=== PATIENT | female | born 1955 | race Caucasian/White ===

== ENCOUNTER 2022-05-20 13:17 | Outpatient (RCR) | payer MEDICARE, BC, SELFPAY ==
[2022-05-20 13:33] LABS: Chloride* 107 mmol/L (96-114)
[2022-05-20 13:34] LABS: Albumin* 4.1 g/dL (3.3-5.0); Potassium* 4.2 mmol/L (3.6-5.1); Sodium* 139 mmol/L (135-149)
[2022-05-20 13:37] LABS: Alanine Aminotransferase* 19 U/L (4-35); Alkaline Phosphatase* 62 U/L (40-150); Aspartate Amino Transferase* 25 U/L (12-35); Blood Urea Nitrogen* 19 mg/dL (7-30); Carbon Dioxide* 32 mmol/L (20-32); Creatinine* 0.9 mg/dL (0.5-1.5); Estimated Glomerular Filt Rate 70.51; Glucose* 111 mg/dL (60-115); Total Protein* 6.6 g/dL (6.0-8.3)
[2022-05-20 13:38] LABS: Calcium* 9.1 mg/dL (8.4-10.6)
[2022-05-20 13:42] LABS: Basophils Percent Auto 1.8 % (0.0-3.0); Eosinophils Percent Auto 3.5 % (0.0-7.0); Hematocrit 38.5 % (33.0-51.0); Hemoglobin* 12.7 gm/dL (12.0-16.0); Immature Granulocytes Abs Auto 0.01 K/uL (0.00-0.30); Lymphocytes Percent Auto 37.4 % (20-44); Mean Corpuscular HGB Conc 33 gm/dL (32-36); Mean Corpuscular Hemoglobin 31 pg (26-34); Mean Corpuscular Volume 94 fL (80-100); Monocytes Percent Auto 17.4 % (0.0-11.0); Neutrophils Percent Auto 39.6 % (42.0-72.0); Platelet Count* 194 K/uL (140-440); RDW Coefficient of Variation % 14.3 % (11.5-15.5)
[2022-05-20 13:46] LABS: Slide Review Reflex No
== END 2022-06-09 23:59 | disposition home or self-care (01) ==
LOC: CCIC 13:17
PROVIDERS: PCP Family Medicine; Visit Provider Internal Medicine Hematology & Oncology
DX: C90.00 Multiple myeloma not having achieved remission (principal)
CPT/HCPCS: 36415; 80053; 85025

== ENCOUNTER 2022-11-18 10:30 | Outpatient (RCR) | payer MEDICARE, BC, SELFPAY ==
[2022-06-17 11:44] LABS: Basophils Percent Auto 0.9 % (0.0-3.0); Eosinophils Percent Auto 1.2 % (0.0-7.0); Hematocrit 39.6 % (33.0-51.0); Hemoglobin* 13.5 gm/dL (12.0-16.0); Immature Granulocytes Abs Auto 0.01 K/uL (0.00-0.30); Lymphocytes Percent Auto 26.8 % (20-44); Mean Corpuscular HGB Conc 34 gm/dL (32-36); Mean Corpuscular Hemoglobin 31 pg (26-34); Mean Corpuscular Volume 92 fL (80-100); Monocytes Percent Auto 20.9 % (0.0-11.0); Platelet Count* 159 K/uL (140-440); White Blood Count* 4.26 K/uL (4.50-11.00)
[2022-06-17 11:56] LABS: Albumin* 4.2 g/dL (3.3-5.0); Chloride* 103 mmol/L (96-114); Potassium* 4.2 mmol/L (3.6-5.1); Sodium* 136 mmol/L (135-149)
[2022-06-17 11:58] LABS: Creatinine* 0.8 mg/dL (0.5-1.5); Estimated Glomerular Filt Rate 81 ml/min
[2022-06-17 11:59] LABS: Alanine Aminotransferase* 59 U/L (4-35); Alkaline Phosphatase* 83 U/L (40-150); Aspartate Amino Transferase* 57 U/L (12-35); Bilirubin Total* 1.5 mg/dL (0.1-1.5); Blood Urea Nitrogen* 15 mg/dL (7-30); Carbon Dioxide* 23 mmol/L (20-32); Glucose* 116 mg/dL (60-115); Slide Review Reflex No; Total Protein* 7.6 g/dL (6.0-8.3)
--- NOTE | 2022-06-18 09:54 | ONC.NURNOTE ---
Lab results were reviewed with Dr Mcnulty yesterday-noting AST/ALT elevation Revlimid to be held this week Vanessa reports upper respiratory symptoms and a fever 101.2 on Friday- treated with tylenol yesterday Afeb and no tylenol Vanessa, her and other family members with similar symptoms over the weekend have all been testing negative for COVID family members have recovered from illness, but Vanessa is still having upper respiratory symptoms and had a STRICKLAND this am which she took tylenol for this am Recommendations; continue to monitor for temp call for appt with Dr Rogers today if she has any fever 100.5 or higher holding revlimid this week plan was to recheck labs in one week- however Vanessa is scheduled to be out of town Friday-Friday- so lab recheck planned for Friday Vanessa understands that she can not come in for lab draw if she has had a temp within 24 hours Vanessa will call if she gets labs with Dr Rogers at [facility] prior to Friday
--- NOTE | 2022-06-18 10:20 | ONC.NURNOTE ---
Vanessa tested positive for COVID instructed to call Dr Rogers for possible treatment with PAxlovid appts here canceled and will be rescheduled for a later date
[2022-07-01 10:35] LABS: Eosinophils Percent Auto 3.1 % (0.0-7.0); Hematocrit 37.4 % (33.0-51.0); Hemoglobin* 12.7 gm/dL (12.0-16.0); Immature Granulocytes Abs Auto 0.01 K/uL (0.00-0.30); Lymphocytes Percent Auto 30.1 % (20-44); Mean Corpuscular HGB Conc 34 gm/dL (32-36); Mean Corpuscular Hemoglobin 32 pg (26-34); Mean Corpuscular Volume 93 fL (80-100); Monocytes Percent Auto 9.6 % (0.0-11.0); Platelet Count* 212 K/uL (140-440); RDW Coefficient of Variation % 14.3 % (11.5-15.5); Red Blood Count 4.02 m/uL (4.00-5.20); White Blood Count* 4.18 K/uL (4.50-11.00)
[2022-07-01 10:38] LABS: Slide Review Reflex No
[2022-07-01 10:47] LABS: Albumin* 3.9 g/dL (3.3-5.0); Chloride* 105 mmol/L (96-114)
[2022-07-01 10:48] LABS: Potassium* 4.3 mmol/L (3.6-5.1); Sodium* 137 mmol/L (135-149)
[2022-07-01 10:50] LABS: Alanine Aminotransferase* 18 U/L (4-35); Alkaline Phosphatase* 70 U/L (40-150); Aspartate Amino Transferase* 25 U/L (12-35); Bilirubin Total* 0.8 mg/dL (0.1-1.5); Blood Urea Nitrogen* 14 mg/dL (7-30); Carbon Dioxide* 27 mmol/L (20-32); Creatinine* 0.8 mg/dL (0.5-1.5); Estimated Glomerular Filt Rate 81 ml/min; Glucose* 94 mg/dL (60-115)
[2022-07-01 10:51] LABS: Calcium* 8.8 mg/dL (8.4-10.6)
--- NOTE | 2022-07-01 15:30 | ONC.NURNOTE ---
Addendum entered by Sol Quintero RN 07/01/22 15:35: Per Dr. Mcnulty recheck CMP in 2 weeks. Original Note: Dr. Mcnulty reviewed pt's labs from today. Okay to resume Revlimid, song writer called patient and patient verbalized understanding of plan of care.
--- NOTE | 2022-07-01 15:50 | ONC.NURNOTE ---
Labs shown to Dr. Mcnulty. pt called.
[2022-07-16 11:48] LABS: Albumin* 4.2 g/dL (3.3-5.0); Chloride* 105 mmol/L (96-114)
[2022-07-16 11:49] LABS: Potassium* 4.4 mmol/L (3.6-5.1); Sodium* 137 mmol/L (135-149)
[2022-07-16 11:51] LABS: Aspartate Amino Transferase* 25 U/L (12-35); Bilirubin Total* 1.4 mg/dL (0.1-1.5); Carbon Dioxide* 27 mmol/L (20-32); Creatinine* 0.7 mg/dL (0.5-1.5); Estimated Glomerular Filt Rate 95 ml/min; Total Protein* 6.9 g/dL (6.0-8.3)
[2022-07-16 11:52] LABS: Alanine Aminotransferase* 15 U/L (4-35); Alkaline Phosphatase* 67 U/L (40-150); Blood Urea Nitrogen* 13 mg/dL (7-30); Calcium* 8.5 mg/dL (8.4-10.6); Glucose* 87 mg/dL (60-115)
[2022-07-29 11:06] LABS: Basophils Percent Auto 1.9 % (0.0-3.0); Eosinophils Percent Auto 2.4 % (0.0-7.0); Hematocrit 36.8 % (33.0-51.0); Hemoglobin* 12.5 gm/dL (12.0-16.0); Immature Granulocytes Abs Auto 0.01 K/uL (0.00-0.30); Mean Corpuscular HGB Conc 34 gm/dL (32-36); Mean Corpuscular Hemoglobin 32 pg (26-34); Mean Corpuscular Volume 94 fL (80-100); Monocytes Percent Auto 14.3 % (0.0-11.0); Neutrophils Percent Auto 45.1 % (42.0-72.0); Platelet Count* 192 K/uL (140-440); Red Blood Count 3.92 m/uL (4.00-5.20); White Blood Count* 3.78 K/uL (4.50-11.00)
[2022-07-29 11:08] LABS: Slide Review Reflex No
[2022-07-29 11:26] LABS: Albumin* 4.2 g/dL (3.3-5.0); Chloride* 107 mmol/L (96-114)
[2022-07-29 11:27] LABS: Potassium* 4.5 mmol/L (3.6-5.1); Sodium* 137 mmol/L (135-149)
[2022-07-29 11:29] LABS: Alanine Aminotransferase* 18 U/L (4-35); Alkaline Phosphatase* 63 U/L (40-150); Aspartate Amino Transferase* 26 U/L (12-35); Bilirubin Total* 1.6 mg/dL (0.1-1.5); Blood Urea Nitrogen* 13 mg/dL (7-30); Carbon Dioxide* 25 mmol/L (20-32); Creatinine* 0.7 mg/dL (0.5-1.5); Estimated Glomerular Filt Rate 95 ml/min; Glucose* 90 mg/dL (60-115)
[2022-07-29 11:30] LABS: Calcium* 8.8 mg/dL (8.4-10.6)
[2022-08-26 13:48] LABS: Basophils Percent Auto 1.1 % (0.0-3.0); Eosinophils Percent Auto 2.7 % (0.0-7.0); Hematocrit 38.6 % (33.0-51.0); Hemoglobin* 13.1 gm/dL (12.0-16.0); Lymphocytes Percent Auto 38.2 % (20-44); Mean Corpuscular HGB Conc 34 gm/dL (32-36); Mean Corpuscular Hemoglobin 32 pg (26-34); Mean Corpuscular Volume 94 fL (80-100); Monocytes Percent Auto 14.1 % (0.0-11.0); Neutrophils Percent Auto 43.9 % (42.0-72.0); Platelet Count* 189 K/uL (140-440); RDW Coefficient of Variation % 14.1 % (11.5-15.5); Red Blood Count 4.13 m/uL (4.00-5.20)
[2022-08-26 13:52] LABS: Slide Review Reflex No
[2022-08-26 14:04] LABS: Albumin* 4.5 g/dL (3.3-5.0); Chloride* 103 mmol/L (96-114); Sodium* 136 mmol/L (135-149)
[2022-08-26 14:05] LABS: Potassium* 4.7 mmol/L (3.6-5.1)
[2022-08-26 14:06] LABS: Creatinine* 0.8 mg/dL (0.5-1.5); Estimated Glomerular Filt Rate 81 ml/min
[2022-08-26 14:07] LABS: Alanine Aminotransferase* 19 U/L (4-35); Alkaline Phosphatase* 63 U/L (40-150); Aspartate Amino Transferase* 27 U/L (12-35); Bilirubin Total* 1.5 mg/dL (0.1-1.5); Blood Urea Nitrogen* 18 mg/dL (7-30); Carbon Dioxide* 28 mmol/L (20-32); Glucose* 98 mg/dL (60-115); Total Protein* 7.6 g/dL (6.0-8.3)
[2022-09-23 11:23] LABS: Basophils Percent Auto 1.2 % (0.0-3.0); Eosinophils Percent Auto 3.5 % (0.0-7.0); Hematocrit 36.1 % (33.0-51.0); Hemoglobin* 12.2 gm/dL (12.0-16.0); Immature Granulocytes Pct Auto 0.6 %; Lymphocytes Percent Auto 24.6 % (20-44); Mean Corpuscular HGB Conc 34 gm/dL (32-36); Mean Corpuscular Hemoglobin 31 pg (26-34); Mean Corpuscular Volume 93 fL (80-100); Monocytes Percent Auto 13.3 % (0.0-11.0); Neutrophils Percent Auto 56.8 % (42.0-72.0); Platelet Count* 196 K/uL (140-440); RDW Coefficient of Variation % 14.3 % (11.5-15.5); Red Blood Count 3.89 m/uL (4.00-5.20); White Blood Count* 3.46 K/uL (4.50-11.00)
[2022-09-23 11:36] LABS: Albumin* 4.1 g/dL (3.3-5.0); Chloride* 107 mmol/L (96-114); Sodium* 138 mmol/L (135-149)
[2022-09-23 11:37] LABS: Potassium* 3.9 mmol/L (3.6-5.1)
[2022-09-23 11:39] LABS: Alanine Aminotransferase* 22 U/L (4-35); Alkaline Phosphatase* 60 U/L (40-150); Aspartate Amino Transferase* 26 U/L (12-35); Bilirubin Total* 1.6 mg/dL (0.1-1.5); Blood Urea Nitrogen* 13 mg/dL (7-30); Carbon Dioxide* 25 mmol/L (20-32); Creatinine* 0.7 mg/dL (0.5-1.5); Estimated Glomerular Filt Rate 95 ml/min; Glucose* 112 mg/dL (60-115); Total Protein* 6.9 g/dL (6.0-8.3)
[2022-09-23 11:40] LABS: Calcium* 8.6 mg/dL (8.4-10.6)
[2022-09-23 11:59] LABS: Slide Review Reflex No
--- NOTE | 2022-09-23 13:03 | ONC.NURNOTE ---
Lab results reviewed and called to Vanessa with in parameters to proceed with Revlimid myeloma labs pending RTC next week with provider
[2022-09-25 17:55] LABS: Free Urinary Kappa Excret/Day 13.48 mg/d; Free Urine LAmbda Light Chains <0.74 mg/L (0.00-3.79); Hours Collected 24 hr; Total Volume 2750 mL
[2022-09-25 19:16] LABS: Albumin 3.69 g/dL (3.75-5.01); Alpha 1 Globulin 0.31 g/dL (0.19-0.46); Alpha 2 Globulin 0.67 g/dL (0.48-1.05); Immunofixation IFE Done; Immunoglobulin A 148 mg/dL (68-408); Immunoglobulin G 1000 mg/dL (768-1632); Immunoglobulin M 41 mg/dL (35-263); Kappa Qnt Free Light Chains 19.18 mg/L (3.30-19.40); Kappa/Lambda Light Chain Ratio 0.87 (0.26-1.65); Total Protein, Serum 6.4 g/dL (6.3-8.2)
[2022-10-21 11:16] LABS: Basophils Percent Auto 1.4 % (0.0-3.0); Eosinophils Percent Auto 3.9 % (0.0-7.0); Hematocrit 37.6 % (33.0-51.0); Hemoglobin* 12.7 gm/dL (12.0-16.0); Immature Granulocytes Pct Auto 0.3 %; Lymphocytes Percent Auto 35.8 % (20-44); Mean Corpuscular HGB Conc 34 gm/dL (32-36); Mean Corpuscular Hemoglobin 31 pg (26-34); Mean Corpuscular Volume 91 fL (80-100); Monocytes Percent Auto 13.3 % (0.0-11.0); Neutrophils Percent Auto 45.3 % (42.0-72.0); Platelet Count* 191 K/uL (140-440); RDW Coefficient of Variation % 14.4 % (11.5-15.5); Red Blood Count 4.12 m/uL (4.00-5.20)
[2022-10-21 11:27] LABS: Slide Review Reflex No
[2022-10-21 11:28] LABS: Albumin* 4.3 g/dL (3.3-5.0); Chloride* 110 mmol/L (96-114)
[2022-10-21 11:29] LABS: Potassium* 4.2 mmol/L (3.6-5.1); Sodium* 139 mmol/L (135-149)
[2022-10-21 11:31] LABS: Aspartate Amino Transferase* 29 U/L (12-35); Bilirubin Total* 1.9 mg/dL (0.1-1.5); Carbon Dioxide* 25 mmol/L (20-32); Creatinine* 0.8 mg/dL (0.5-1.5); Estimated Glomerular Filt Rate 81 ml/min
[2022-10-21 11:32] LABS: Alanine Aminotransferase* 25 U/L (4-35); Alkaline Phosphatase* 58 U/L (40-150); Blood Urea Nitrogen* 14 mg/dL (7-30); Glucose* 96 mg/dL (60-115)
--- NOTE | 2022-10-21 16:24 | ONC.NURNOTE ---
called pt with lab results. ok to take Revlimid. per Brooke WINSLOW/Dr. Mcnulty.
[2022-10-24 04:58] LABS: Immunofixation IFE Done; Immunoglobulin A 157 mg/dL (68-408); Immunoglobulin G 1034 mg/dL (768-1632); Immunoglobulin M 39 mg/dL (35-263); Kappa Qnt Free Light Chains 23.61 mg/L (3.30-19.40); Kappa/Lambda Light Chain Ratio 1.14 (0.26-1.65); Lambda Qnt Free Light Chains 20.65 mg/L (5.71-26.30); Total Protein, Serum 6.5 g/dL (6.3-8.2)
[2022-11-18 11:26] LABS: Albumin* 4.1 g/dL (3.3-5.0); Chloride* 107 mmol/L (96-114); Potassium* 4.4 mmol/L (3.6-5.1); Sodium* 138 mmol/L (135-149)
[2022-11-18 11:28] LABS: Creatinine* 0.8 mg/dL (0.5-1.5); Estimated Glomerular Filt Rate 81 ml/min
[2022-11-18 11:29] LABS: Alanine Aminotransferase* 21 U/L (4-35); Alkaline Phosphatase* 57 U/L (40-150); Aspartate Amino Transferase* 26 U/L (12-35); Bilirubin Total* 1.7 mg/dL (0.1-1.5); Blood Urea Nitrogen* 17 mg/dL (7-30); Carbon Dioxide* 27 mmol/L (20-32); Glucose* 100 mg/dL (60-115); Total Protein* 6.9 g/dL (6.0-8.3)
[2022-11-18 11:30] LABS: Calcium* 8.9 mg/dL (8.4-10.6)
[2022-11-18 14:20] LABS: Basophils Percent Auto 1.6 % (0.0-3.0); Eosinophils Percent Auto 3.6 % (0.0-7.0); Hematocrit 38.6 % (33.0-51.0); Hemoglobin* 13.1 gm/dL (12.0-16.0); Immature Granulocytes Pct Auto 0.5 %; Lymphocytes Percent Auto 36.3 % (20-44); Mean Corpuscular HGB Conc 34 gm/dL (32-36); Mean Corpuscular Hemoglobin 31 pg (26-34); Mean Corpuscular Volume 91 fL (80-100); Monocytes Percent Auto 14.2 % (0.0-11.0); Neutrophils Percent Auto 43.8 % (42.0-72.0); Platelet Count* 204 K/uL (140-440); RDW Coefficient of Variation % 14.9 % (11.5-15.5); Red Blood Count 4.26 m/uL (4.00-5.20); White Blood Count* 3.66 K/uL (4.50-11.00)
[2022-11-18 14:25] LABS: Slide Review Reflex No
--- NOTE | 2022-11-18 15:05 | ONC.NURNOTE ---
Labs reviewed and called to Vanessa as stable and with in her norm She plans to start Revlimid Next appts reviewed
== END 2022-12-14 23:59 | disposition home or self-care (01) ==
LOC: CCIC 10:30
PROVIDERS: Clinical Nurse Specialist; Internal Medicine Medical Oncology; PCP Family Medicine; Referring Provider Family Medicine; Visit Provider Internal Medicine Hematology & Oncology
DX: C90.01 Multiple myeloma in remission (principal); G62.0 Drug-induced polyneuropathy; T45.1X5A Adverse effect of antineoplastic and immunosuppressive drugs, initial encounter
CPT/HCPCS: 36415; 80053; 82784; 83520; 84155; 84156; 84165; 85025; 86334; 86335; 99212; 99213; 99214

== ENCOUNTER 2023-06-04 12:30 | Outpatient (RCR) | payer MEDICARE, BC, SELFPAY ==
[2022-12-16 11:05] LABS: Basophils Percent Auto 1.9 % (0.0-3.0); Hematocrit 39.1 % (33.0-51.0); Hemoglobin* 13.2 gm/dL (12.0-16.0); Lymphocytes Percent Auto 35.7 % (20-44); Mean Corpuscular HGB Conc 34 gm/dL (32-36); Mean Corpuscular Hemoglobin 31 pg (26-34); Mean Corpuscular Volume 91 fL (80-100); Monocytes Percent Auto 16.1 % (0.0-11.0); Neutrophils Percent Auto 43.3 % (42.0-72.0); Platelet Count* 184 K/uL (140-440); Red Blood Count 4.29 m/uL (4.00-5.20); White Blood Count* 3.67 K/uL (4.50-11.00)
[2022-12-16 11:06] LABS: Slide Review Reflex No
[2022-12-16 11:32] LABS: Albumin* 4.1 g/dL (3.3-5.0); Chloride* 110 mmol/L (96-114); Potassium* 4.7 mmol/L (3.6-5.1); Sodium* 141 mmol/L (135-149)
[2022-12-16 11:34] LABS: Aspartate Amino Transferase* 25 U/L (12-35); Carbon Dioxide* 25 mmol/L (20-32); Creatinine* 0.8 mg/dL (0.5-1.5); Estimated Glomerular Filt Rate 81 ml/min
[2022-12-16 11:35] LABS: Alanine Aminotransferase* 20 U/L (4-35); Alkaline Phosphatase* 54 U/L (40-150); Blood Urea Nitrogen* 14 mg/dL (7-30); Calcium* 8.8 mg/dL (8.4-10.6); Glucose* 95 mg/dL (60-115); Total Protein* 7.1 g/dL (6.0-8.3)
--- NOTE | 2022-12-17 09:27 | ONC.NURNOTE ---
Patient called and given lab results and also told that PATIENT OMBUDSPERSON-Rolanda reviewed them and bili up to 2.0 so instructed to push fluids and avoid alcoholic beverages. Recheck 01/13 already set up
[2023-01-14 11:27] LABS: Basophils Percent Auto 1.2 % (0.0-3.0); Eosinophils Percent Auto 3.6 % (0.0-7.0); Hemoglobin* 13.5 gm/dL (12.0-16.0); Immature Granulocytes Pct Auto 0.2 %; Lymphocytes Percent Auto 31.9 % (20-44); Mean Corpuscular HGB Conc 34 gm/dL (32-36); Mean Corpuscular Hemoglobin 31 pg (26-34); Mean Corpuscular Volume 91 fL (80-100); Neutrophils Percent Auto 47.1 % (42.0-72.0); Platelet Count* 189 K/uL (140-440)
[2023-01-14 11:30] LABS: Slide Review Reflex No
[2023-01-14 11:44] LABS: Albumin* 4.2 g/dL (3.3-5.0); Chloride* 108 mmol/L (96-114)
[2023-01-14 11:45] LABS: Potassium* 4.7 mmol/L (3.6-5.1); Sodium* 138 mmol/L (135-149)
[2023-01-14 11:47] LABS: Carbon Dioxide* 27 mmol/L (20-32); Creatinine* 0.8 mg/dL (0.5-1.5); Estimated Glomerular Filt Rate 81 ml/min
[2023-01-14 11:48] LABS: Alanine Aminotransferase* 20 U/L (4-35); Alkaline Phosphatase* 58 U/L (40-150); Aspartate Amino Transferase* 25 U/L (12-35); Bilirubin Total* 1.9 mg/dL (0.1-1.5); Blood Urea Nitrogen* 13 mg/dL (7-30); Glucose* 84 mg/dL (60-115); Total Protein* 7.4 g/dL (6.0-8.3)
[2023-01-16 18:52] LABS: Free Urinary Kappa Excret/Day 21.32 mg/d; Free Urinary Lambda Excr/Day 2.63 mg/d; Free Urine Kappa Light Chains 9.17 mg/L (0.00-32.90); Free Urine LAmbda Light Chains 1.13 mg/L (0.00-3.79); Hours Collected 24 hr; Total Volume 2325 mL
[2023-01-17 13:58] LABS: Albumin 4.09 g/dL (3.75-5.01); Alpha 1 Globulin 0.29 g/dL (0.19-0.46); Alpha 2 Globulin 0.62 g/dL (0.48-1.05); Immunofixation IFE Done; Immunoglobulin A 170 mg/dL (68-408); Immunoglobulin G 1006 mg/dL (768-1632); Immunoglobulin M 46 mg/dL (35-263); Kappa Qnt Free Light Chains 23.89 mg/L (3.30-19.40); Kappa/Lambda Light Chain Ratio 1.07 (0.26-1.65); Lambda Qnt Free Light Chains 22.32 mg/L (5.71-26.30); Total Protein, Serum 6.8 g/dL (6.3-8.2)
--- NOTE | 2023-02-06 11:08 | ONC.NURNOTE ---
patient held start date of last Revlimid cycle X 2 days due to cold/ upper respiratory symptoms with no fever, and covid neg since taking revlimid this past 3 weeks she has had a persisitant cough, afeb, no sore throat, but grandkids have had ear infections and strept reports improving cough, but next lab moved to 02/12/23 and next start of Rev may need to be delayed if symptoms persist next week
[2023-02-12 11:01] LABS: Basophils Percent Auto 1.4 % (0.0-3.0); Eosinophils Percent Auto 4.1 % (0.0-7.0); Hematocrit 38.8 % (33.0-51.0); Hemoglobin* 13.1 gm/dL (12.0-16.0); Immature Granulocytes Pct Auto 0.2 %; Mean Corpuscular HGB Conc 34 gm/dL (32-36); Mean Corpuscular Hemoglobin 31 pg (26-34); Mean Corpuscular Volume 91 fL (80-100); Monocytes Percent Auto 12.7 % (0.0-11.0); Neutrophils Percent Auto 49.6 % (42.0-72.0); Platelet Count* 198 K/uL (140-440); RDW Coefficient of Variation % 14.5 % (11.5-15.5); Red Blood Count 4.26 m/uL (4.00-5.20); White Blood Count* 4.16 K/uL (4.50-11.00)
[2023-02-12 11:06] LABS: Slide Review Reflex No
[2023-02-12 11:46] LABS: Albumin* 3.9 g/dL (3.3-5.0); Chloride* 109 mmol/L (96-114)
[2023-02-12 11:48] LABS: Bilirubin Total* 1.8 mg/dL (0.1-1.5); Creatinine* 0.8 mg/dL (0.5-1.5); Estimated Glomerular Filt Rate 81 ml/min
[2023-02-12 11:49] LABS: Alanine Aminotransferase* 19 U/L (4-35); Alkaline Phosphatase* 61 U/L (40-150); Aspartate Amino Transferase* 26 U/L (12-35); Blood Urea Nitrogen* 13 mg/dL (7-30); Calcium* 8.7 mg/dL (8.4-10.6); Carbon Dioxide* 26 mmol/L (20-32); Glucose* 98 mg/dL (60-115)
[2023-02-12 11:54] LABS: Sodium* 137 mmol/L (135-149)
[2023-02-12 11:55] LABS: Potassium* 4.2 mmol/L (3.6-5.1)
--- NOTE | 2023-02-12 13:27 | ONC.NURNOTE ---
Labs noted as with in patients normal called to Vanessa to start next cycle Revlimid
[2023-03-12 10:25] LABS: Eosinophils Percent Auto 4.3 % (0.0-7.0); Hematocrit 38.4 % (33.0-51.0); Hemoglobin* 12.9 gm/dL (12.0-16.0); Lymphocytes Percent Auto 39.9 % (20-44); Mean Corpuscular HGB Conc 34 gm/dL (32-36); Mean Corpuscular Hemoglobin 31 pg (26-34); Mean Corpuscular Volume 93 fL (80-100); Monocytes Percent Auto 14.4 % (0.0-11.0); Neutrophils Percent Auto 39.4 % (42.0-72.0); Platelet Count* 206 K/uL (140-440); RDW Coefficient of Variation % 14.3 % (11.5-15.5); Red Blood Count 4.15 m/uL (4.00-5.20); White Blood Count* 3.48 K/uL (4.50-11.00)
[2023-03-12 10:28] LABS: Slide Review Reflex No
[2023-03-12 10:41] LABS: Albumin* 4.2 g/dL (3.3-5.0); Chloride* 106 mmol/L (96-114); Potassium* 4.6 mmol/L (3.6-5.1); Sodium* 138 mmol/L (135-149)
[2023-03-12 10:43] LABS: Bilirubin Total* 1.4 mg/dL (0.1-1.5); Carbon Dioxide* 25 mmol/L (20-32); Creatinine* 0.8 mg/dL (0.5-1.5); Estimated Glomerular Filt Rate 81 ml/min
[2023-03-12 10:44] LABS: Alanine Aminotransferase* 21 U/L (4-35); Alkaline Phosphatase* 58 U/L (40-150); Aspartate Amino Transferase* 24 U/L (12-35); Blood Urea Nitrogen* 17 mg/dL (7-30); Calcium* 9.1 mg/dL (8.4-10.6); Glucose* 88 mg/dL (60-115); Total Protein* 7.2 g/dL (6.0-8.3)
[2023-04-09 11:26] LABS: Basophils Percent Auto 1.3 % (0.0-3.0); Eosinophils Percent Auto 2.8 % (0.0-7.0); Hematocrit 36.2 % (33.0-51.0); Hemoglobin* 12.3 gm/dL (12.0-16.0); Lymphocytes Percent Auto 41.6 % (20-44); Mean Corpuscular HGB Conc 34 gm/dL (32-36); Mean Corpuscular Hemoglobin 31 pg (26-34); Mean Corpuscular Volume 91 fL (80-100); Monocytes Percent Auto 13.6 % (0.0-11.0); Neutrophils Percent Auto 40.7 % (42.0-72.0); Platelet Count* 192 K/uL (140-440); RDW Coefficient of Variation % 14.5 % (11.5-15.5); Red Blood Count 3.98 m/uL (4.00-5.20); White Blood Count* 3.17 K/uL (4.50-11.00)
[2023-04-09 11:31] LABS: Slide Review Reflex No
[2023-04-09 11:48] LABS: Albumin* 4.1 g/dL (3.3-5.0); Chloride* 105 mmol/L (96-114)
[2023-04-09 11:49] LABS: Potassium* 4.2 mmol/L (3.6-5.1); Sodium* 138 mmol/L (135-149)
[2023-04-09 11:51] LABS: Alkaline Phosphatase* 59 U/L (40-150); Aspartate Amino Transferase* 27 U/L (12-35); Bilirubin Total* 1.5 mg/dL (0.1-1.5); Carbon Dioxide* 27 mmol/L (20-32); Creatinine* 0.7 mg/dL (0.5-1.5); Estimated Glomerular Filt Rate 95 ml/min; Total Protein* 6.8 g/dL (6.0-8.3)
[2023-04-09 11:52] LABS: Alanine Aminotransferase* 22 U/L (4-35); Blood Urea Nitrogen* 13 mg/dL (7-30); Calcium* 9.5 mg/dL (8.4-10.6); Glucose* 89 mg/dL (60-115)
[2023-04-11 19:17] LABS: Free Urinary Kappa Excret/Day 32.27 mg/d; Free Urinary Lambda Excr/Day 3.66 mg/d; Free Urine Kappa Light Chains 18.98 mg/L (0.00-32.90); Free Urine LAmbda Light Chains 2.15 mg/L (0.00-3.79); Hours Collected 24 hr; Total Volume 1700 mL
[2023-04-24 01:38] LABS: Albumin 4.03 g/dL (3.75-5.01); Alpha 1 Globulin 0.33 g/dL (0.19-0.46); Alpha 2 Globulin 0.63 g/dL (0.48-1.05); Immunofixation IFE Done; Immunoglobulin A 187 mg/dL (68-408); Immunoglobulin G 1037 mg/dL (768-1632); Immunoglobulin M 43 mg/dL (35-263); Kappa/Lambda Light Chain Ratio 1.29 (0.26-1.65); Lambda Qnt Free Light Chains 26.82 mg/L (5.71-26.30); Total Protein, Serum 6.8 g/dL (6.3-8.2)
--- NOTE | 2023-05-01 11:47 | ONC.NURNOTE ---
Myeloma labs reviewed by Dr Horan no changes warrented results called to Vanessa continue with current dose revlimid and follow up as planned for Jun with Dr Trinidad and repeat labs
[2023-05-06 09:32] LABS: Basophils Percent Auto 1.1 % (0.0-3.0); Hemoglobin* 13.1 gm/dL (12.0-16.0); Lymphocytes Percent Auto 37.6 % (20-44); Mean Corpuscular HGB Conc 34 gm/dL (32-36); Mean Corpuscular Hemoglobin 31 pg (26-34); Mean Corpuscular Volume 91 fL (80-100); Monocytes Percent Auto 13.1 % (0.0-11.0); Neutrophils Percent Auto 43.2 % (42.0-72.0); Platelet Count* 182 K/uL (140-440); RDW Coefficient of Variation % 14.8 % (11.5-15.5); White Blood Count* 2.82 K/uL (4.50-11.00)
[2023-05-06 09:40] LABS: Slide Review Reflex No
[2023-05-06 09:51] LABS: Albumin* 4.2 g/dL (3.3-5.0); Chloride* 104 mmol/L (96-114); Potassium* 4.3 mmol/L (3.6-5.1); Sodium* 137 mmol/L (135-149)
[2023-05-06 09:53] LABS: Creatinine* 0.8 mg/dL (0.5-1.5); Est. Creatinine Clearance* 45.16; Estimated Glomerular Filt Rate 81 ml/min
[2023-05-06 09:54] LABS: Alanine Aminotransferase* 18 U/L (4-35); Alkaline Phosphatase* 53 U/L (40-150); Aspartate Amino Transferase* 23 U/L (12-35); Blood Urea Nitrogen* 13 mg/dL (7-30); Carbon Dioxide* 27 mmol/L (20-32); Glucose* 82 mg/dL (60-115); Total Protein* 7.1 g/dL (6.0-8.3)
[2023-05-06 09:55] LABS: Calcium* 8.9 mg/dL (8.4-10.6)
--- NOTE | 2023-05-07 12:14 | ONC.NURNOTE ---
labs reviewed by ticket writer and Suzanne Sahu WINDOW REPAIRER/STATISTICAL PROGRAMMER ANALYST WBC/ANC noted lower then norm but with in parameters bili flucuation noted reviewed with Vanessa to start Revlimid today
[2023-06-04 12:30] LABS: Hematocrit 38.5 % (33.0-51.0); Lymphocytes Percent Auto 38.4 % (20-44); Mean Corpuscular HGB Conc 34 gm/dL (32-36); Mean Corpuscular Hemoglobin 31 pg (26-34); Mean Corpuscular Volume 91 fL (80-100); Monocytes Percent Auto 15.5 % (0.0-11.0); Neutrophils Percent Auto 40.7 % (42.0-72.0); Platelet Count* 189 K/uL (140-440); RDW Coefficient of Variation % 15.1 % (11.5-15.5); Red Blood Count 4.24 m/uL (4.00-5.20); White Blood Count* 3.49 K/uL (4.50-11.00)
[2023-06-04 12:31] LABS: Basophils Percent Auto 1.4 % (0.0-3.0)
[2023-06-04 12:34] LABS: Slide Review Reflex No
[2023-06-04 13:05] LABS: Chloride* 108 mmol/L (96-114); Potassium* 3.9 mmol/L (3.6-5.1); Sodium* 136 mmol/L (135-149)
[2023-06-04 13:07] LABS: Creatinine* 0.8 mg/dL (0.5-1.5); Est. Creatinine Clearance* 45.16; Estimated Glomerular Filt Rate 81 ml/min
[2023-06-04 13:08] LABS: Alanine Aminotransferase* 19 U/L (4-35); Alkaline Phosphatase* 57 U/L (40-150); Aspartate Amino Transferase* 27 U/L (12-35); Bilirubin Total* 1.6 mg/dL (0.1-1.5); Blood Urea Nitrogen* 14 mg/dL (7-30); Carbon Dioxide* 23 mmol/L (20-32); Glucose* 104 mg/dL (60-115); Total Protein* 7.1 g/dL (6.0-8.3)
[2023-06-04 13:09] LABS: Calcium* 8.8 mg/dL (8.4-10.6)
--- NOTE | 2023-06-06 10:40 | ONC.NURNOTE ---
Lab reviewed with Vanessa, Revlimid was started yesterday after Vanessa reviewed labs in the portal no concerns with dosing next lab will be done at [place] on 07/04/23- with plan to start the Revlimid on that day if the labs are within her parameters Follow up with Dr Trinidad around 07/09 next appts in [place] pending Dr Trinidad's follow up
== END 2023-06-14 23:59 | disposition home or self-care (01) ==
LOC: CCIC 12:30
PROVIDERS: Clinical Nurse Specialist; PCP Family Medicine; Referring Provider Family Medicine; Visit Provider Internal Medicine Hematology & Oncology
DX: C90.01 Multiple myeloma in remission (principal)
CPT/HCPCS: 36415; 80053; 82784; 83520; 84155; 84156; 84165; 85025; 86334; 86335; 99212; 99214

== ENCOUNTER 2024-01-22 10:30 | Outpatient (RCR) | payer MEDICARE, BC, SELFPAY ==
--- NOTE | 2023-07-25 12:29 | ONC.NURNOTE ---
Survey completed through [facility] specialty. Prescription faxed to [facility] specialty pharmacy.
[2023-07-31 11:33] LABS: Basophils Percent Auto 2.4 % (0.0-3.0); Eosinophils Percent Auto 3.8 % (0.0-7.0); Hematocrit 38.1 % (33.0-51.0); Hemoglobin* 12.9 gm/dL (12.0-16.0); Immature Granulocytes Pct Auto 0.3 %; Lymphocytes Percent Auto 38.5 % (20-44); Mean Corpuscular HGB Conc 34 gm/dL (32-36); Mean Corpuscular Hemoglobin 31 pg (26-34); Mean Corpuscular Volume 93 fL (80-100); Platelet Count* 215 K/uL (140-440); RDW Coefficient of Variation % 15.4 % (11.5-15.5); Red Blood Count 4.11 m/uL (4.00-5.20); White Blood Count* 2.86 K/uL (4.50-11.00)
[2023-07-31 11:49] LABS: Albumin* 4.2 g/dL (3.3-5.0); Chloride* 107 mmol/L (96-114)
[2023-07-31 11:50] LABS: Potassium* 4.3 mmol/L (3.6-5.1); Sodium* 139 mmol/L (135-149)
[2023-07-31 11:51] LABS: Slide Review Reflex No
[2023-07-31 11:52] LABS: Alkaline Phosphatase* 69 U/L (40-150); Anion Gap 6 mEq/L (7-15); Aspartate Amino Transferase* 27 U/L (12-35); Bilirubin Total* 1.4 mg/dL (0.1-1.5); Blood Urea Nitrogen* 10 mg/dL (7-30); Carbon Dioxide* 26 mmol/L (20-32); Creatinine* 0.8 mg/dL (0.5-1.5); Estimated Glomerular Filt Rate 81 ml/min; Total Protein* 7.4 g/dL (6.0-8.3)
[2023-07-31 11:53] LABS: Alanine Aminotransferase* 21 U/L (4-35); Calcium* 9.1 mg/dL (8.4-10.6); Glucose* 112 mg/dL (60-115)
[2023-08-28 11:04] LABS: Eosinophils Percent Auto 6.8 % (0.0-7.0); Hematocrit 38.5 % (33.0-51.0); Hemoglobin* 13.1 gm/dL (12.0-16.0); Immature Granulocytes Pct Auto 0.3 %; Lymphocytes Percent Auto 33.5 % (20-44); Mean Corpuscular HGB Conc 34 gm/dL (32-36); Mean Corpuscular Hemoglobin 32 pg (26-34); Mean Corpuscular Volume 93 fL (80-100); Monocytes Percent Auto 11.7 % (0.0-11.0); Neutrophils Percent Auto 46.7 % (42.0-72.0); Platelet Count* 202 K/uL (140-440); RDW Coefficient of Variation % 14.4 % (11.5-15.5); Red Blood Count 4.14 m/uL (4.00-5.20); White Blood Count* 3.85 K/uL (4.50-11.00)
[2023-08-28 11:15] LABS: Slide Review Reflex No
[2023-08-28 11:33] LABS: Albumin* 4.3 g/dL (3.3-5.0); Chloride* 103 mmol/L (96-114)
[2023-08-28 11:34] LABS: Sodium* 138 mmol/L (135-149)
[2023-08-28 11:36] LABS: Alkaline Phosphatase* 69 U/L (40-150); Anion Gap 11 mEq/L (7-15); Aspartate Amino Transferase* 42 U/L (12-35); Bilirubin Total* 1.9 mg/dL (0.1-1.5); Blood Urea Nitrogen* 13 mg/dL (7-30); Carbon Dioxide* 24 mmol/L (20-32); Creatinine* 0.8 mg/dL (0.5-1.5); Estimated Glomerular Filt Rate 81 ml/min; Total Protein* 7.5 g/dL (6.0-8.3)
[2023-08-28 11:37] LABS: Alanine Aminotransferase* 20 U/L (4-35); Calcium* 8.7 mg/dL (8.4-10.6); Glucose* 96 mg/dL (60-115)
[2023-09-23 10:53] LABS: Basophils Percent Auto 0.8 % (0.0-3.0); Hematocrit 35.9 % (33.0-51.0); Hemoglobin* 12.3 gm/dL (12.0-16.0); Immature Granulocytes Pct Auto 0.3 %; Lymphocytes Percent Auto 37.3 % (20-44); Mean Corpuscular HGB Conc 34 gm/dL (32-36); Mean Corpuscular Hemoglobin 31 pg (26-34); Mean Corpuscular Volume 91 fL (80-100); Monocytes Percent Auto 12.6 % (0.0-11.0); Platelet Count* 193 K/uL (140-440); RDW Coefficient of Variation % 14.2 % (11.5-15.5); Red Blood Count 3.94 m/uL (4.00-5.20); White Blood Count* 3.57 K/uL (4.50-11.00)
[2023-09-23 10:54] LABS: Slide Review Reflex No
[2023-09-23 11:09] LABS: Albumin* 3.9 g/dL (3.3-5.0); Chloride* 108 mmol/L (96-114); Potassium* 4.1 mmol/L (3.6-5.1); Sodium* 137 mmol/L (135-149)
[2023-09-23 11:12] LABS: Alanine Aminotransferase* 18 U/L (4-35); Alkaline Phosphatase* 66 U/L (40-150); Anion Gap 5 mEq/L (7-15); Aspartate Amino Transferase* 35 U/L (12-35); Bilirubin Total* 1.6 mg/dL (0.1-1.5); Blood Urea Nitrogen* 13 mg/dL (7-30); Carbon Dioxide* 24 mmol/L (20-32); Creatinine* 0.7 mg/dL (0.5-1.5); Estimated Glomerular Filt Rate 94 ml/min; Glucose* 104 mg/dL (60-115); Total Protein* 7.1 g/dL (6.0-8.3)
[2023-09-23 11:13] LABS: Calcium* 8.8 mg/dL (8.4-10.6)
--- NOTE | 2023-09-23 14:14 | ONC.NURNOTE ---
Lab results reviewed and tanya Mendez has follow up next week with Oncology
[2023-09-26 02:12] LABS: Free Urinary Lambda Excr/Day 2.31 mg/d; Free Urine LAmbda Light Chains 1.38 mg/L (0.00-3.79); Hours Collected 24 hr; Total Volume 1675 mL
[2023-09-26 18:18] LABS: Albumin 3.74 g/dL (3.75-5.01); Alpha 2 Globulin 0.61 g/dL (0.48-1.05); Immunofixation IFE Done; Immunoglobulin A 172 mg/dL (68-408); Immunoglobulin G 1006 mg/dL (768-1632); Immunoglobulin M 44 mg/dL (35-263); Kappa Qnt Free Light Chains 31.24 mg/L (3.30-19.40); Kappa/Lambda Light Chain Ratio 1.19 (0.26-1.65); Lambda Qnt Free Light Chains 26.18 mg/L (5.71-26.30); Total Protein, Serum 6.4 g/dL (6.3-8.2)
--- NOTE | 2023-10-23 09:51 | ONC.NURNOTE ---
Addendum entered by Sol Quintero RN 10/31/23 16:01: Labs reviewed by Suzanne Sahu APRN. Pt called and she is asymptomatic. Pt will restart revlimid on 11/02/23. Original Note: COVID positive on 10/20/23 started Paxlovid afeb and tested Neg today no lenolidomide X10 days lab rescheduled for 10/31- Day 11- patient understands if symptomatic she will need to reschedule
[2023-10-31 10:52] LABS: Basophils Percent Auto 0.5 % (0.0-3.0); Eosinophils Percent Auto 2.2 % (0.0-7.0); Hematocrit 39.5 % (33.0-51.0); Hemoglobin* 13.2 gm/dL (12.0-16.0); Lymphocytes Percent Auto 35.1 % (20-44); Mean Corpuscular HGB Conc 33 gm/dL (32-36); Mean Corpuscular Hemoglobin 30 pg (26-34); Mean Corpuscular Volume 91 fL (80-100); Monocytes Percent Auto 9.5 % (0.0-11.0); Neutrophils Percent Auto 52.7 % (42.0-72.0); Platelet Count* 230 K/uL (140-440); RDW Coefficient of Variation % 13.9 % (11.5-15.5); Red Blood Count 4.34 m/uL (4.00-5.20); White Blood Count* 3.68 K/uL (4.50-11.00)
[2023-10-31 11:05] LABS: Albumin* 4.5 g/dL (3.3-5.0); Chloride* 102 mmol/L (96-114)
[2023-10-31 11:06] LABS: Potassium* 4.4 mmol/L (3.6-5.1); Slide Review Reflex No; Sodium* 137 mmol/L (135-149)
[2023-10-31 11:08] LABS: Anion Gap 11 mEq/L (7-15); Aspartate Amino Transferase* 23 U/L (12-35); Bilirubin Total* 1.5 mg/dL (0.1-1.5); Carbon Dioxide* 24 mmol/L (20-32); Creatinine* 0.8 mg/dL (0.5-1.5); Estimated Glomerular Filt Rate 80 ml/min; Total Protein* 7.5 g/dL (6.0-8.3)
[2023-10-31 11:09] LABS: Alanine Aminotransferase* 21 U/L (4-35); Alkaline Phosphatase* 75 U/L (40-150); Blood Urea Nitrogen* 15 mg/dL (7-30); Glucose* 91 mg/dL (60-115)
[2023-11-26 10:08] LABS: Basophils Percent Auto 1.4 % (0.0-3.0); Eosinophils Percent Auto 2.2 % (0.0-7.0); Hematocrit 38.1 % (33.0-51.0); Hemoglobin* 12.8 gm/dL (12.0-16.0); Immature Granulocytes Pct Auto 0.3 %; Lymphocytes Percent Auto 27.6 % (20-44); Mean Corpuscular HGB Conc 34 gm/dL (32-36); Mean Corpuscular Hemoglobin 31 pg (26-34); Mean Corpuscular Volume 93 fL (80-100); Monocytes Percent Auto 11.3 % (0.0-11.0); Neutrophils Percent Auto 57.2 % (42.0-72.0); Platelet Count* 185 K/uL (140-440); RDW Coefficient of Variation % 15.4 % (11.5-15.5); Red Blood Count 4.08 m/uL (4.00-5.20); White Blood Count* 3.62 K/uL (4.50-11.00)
[2023-11-26 10:11] LABS: Slide Review Reflex No
[2023-11-26 10:22] LABS: Albumin* 4.1 g/dL (3.3-5.0); Chloride* 109 mmol/L (96-114)
[2023-11-26 10:23] LABS: Potassium* 4.4 mmol/L (3.6-5.1); Sodium* 140 mmol/L (135-149)
[2023-11-26 10:25] LABS: Anion Gap 7 mEq/L (7-15); Aspartate Amino Transferase* 24 U/L (12-35); Bilirubin Total* 1.8 mg/dL (0.1-1.5); Carbon Dioxide* 24 mmol/L (20-32); Creatinine* 0.7 mg/dL (0.5-1.5); Estimated Glomerular Filt Rate 94 ml/min; Total Protein* 7.2 g/dL (6.0-8.3)
[2023-11-26 10:26] LABS: Alanine Aminotransferase* 19 U/L (4-35); Alkaline Phosphatase* 60 U/L (40-150); Blood Urea Nitrogen* 13 mg/dL (7-30); Calcium* 8.9 mg/dL (8.4-10.6); Glucose* 100 mg/dL (60-115)
[2023-12-24 11:20] LABS: Eosinophils Percent Auto 5.4 % (0.0-7.0); Hematocrit 39.3 % (33.0-51.0); Hemoglobin* 13.1 gm/dL (12.0-16.0); Immature Granulocytes Pct Auto 0.3 %; Lymphocytes Percent Auto 43.6 % (20-44); Mean Corpuscular HGB Conc 33 gm/dL (32-36); Mean Corpuscular Hemoglobin 31 pg (26-34); Mean Corpuscular Volume 92 fL (80-100); Monocytes Percent Auto 11.7 % (0.0-11.0); Platelet Count* 226 K/uL (140-440); RDW Coefficient of Variation % 14.9 % (11.5-15.5); Red Blood Count 4.26 m/uL (4.00-5.20); White Blood Count* 3.92 K/uL (4.50-11.00)
[2023-12-24 11:23] LABS: Slide Review Reflex No
[2023-12-24 11:58] LABS: Albumin* 4.2 g/dL (3.3-5.0); Chloride* 107 mmol/L (96-114); Sodium* 137 mmol/L (135-149)
[2023-12-24 11:59] LABS: Potassium* 4.5 mmol/L (3.6-5.1)
[2023-12-24 12:01] LABS: Alanine Aminotransferase* 15 U/L (4-35); Alkaline Phosphatase* 62 U/L (40-150); Anion Gap 6 mEq/L (7-15); Aspartate Amino Transferase* 23 U/L (12-35); Bilirubin Total* 1.3 mg/dL (0.1-1.5); Blood Urea Nitrogen* 14 mg/dL (7-30); Carbon Dioxide* 24 mmol/L (20-32); Creatinine* 0.8 mg/dL (0.5-1.5); Estimated Glomerular Filt Rate 80 ml/min; Glucose* 92 mg/dL (60-115); Total Protein* 7.4 g/dL (6.0-8.3)
[2023-12-24 12:02] LABS: Calcium* 9.5 mg/dL (8.4-10.6)
--- NOTE | 2023-12-24 14:01 | ONC.NURNOTE ---
CBC results reviewed by Dr Dooley- chemistry was pending but has now resulted as stable within patients range results called to Vanessa and may start her Revlimid when she receives later this week
[2023-12-26 07:21] LABS: Free Urinary Kappa Excret/Day 14.09 mg/d; Free Urine Kappa Light Chains 5.42 mg/L (0.00-32.90); Free Urine LAmbda Light Chains <0.74 mg/L (0.00-3.79); Hours Collected 24 hr; Total Volume 2600 mL
[2023-12-27 16:11] LABS: Albumin 3.93 g/dL (3.75-5.01); Alpha 1 Globulin 0.32 g/dL (0.19-0.46); Alpha 2 Globulin 0.64 g/dL (0.48-1.05); Immunofixation IFE Done; Immunoglobulin A 198 mg/dL (68-408); Immunoglobulin G 1044 mg/dL (768-1632); Immunoglobulin M 39 mg/dL (35-263); Kappa Qnt Free Light Chains 35.61 mg/L (3.30-19.40); Kappa/Lambda Light Chain Ratio 1.04 (0.26-1.65); Lambda Qnt Free Light Chains 34.13 mg/L (5.71-26.30); Total Protein, Serum 6.7 g/dL (6.3-8.2)
--- NOTE | 2023-12-31 14:17 | ONC.NURNOTE ---
myeloma labs noted - forwarded to Dr Dooley for review
[2024-01-22 11:18] LABS: Basophils Percent Auto 1.7 % (0.0-3.0); Eosinophils Percent Auto 6.7 % (0.0-7.0); Hematocrit 38.3 % (33.0-51.0); Immature Granulocytes Pct Auto 0.3 %; Lymphocytes Percent Auto 33.2 % (20-44); Mean Corpuscular HGB Conc 34 gm/dL (32-36); Mean Corpuscular Hemoglobin 31 pg (26-34); Mean Corpuscular Volume 92 fL (80-100); Monocytes Percent Auto 12.8 % (0.0-11.0); Neutrophils Percent Auto 45.3 % (42.0-72.0); Platelet Count* 194 K/uL (140-440); RDW Coefficient of Variation % 14.6 % (11.5-15.5); Red Blood Count 4.18 m/uL (4.00-5.20); White Blood Count* 3.43 K/uL (4.50-11.00)
[2024-01-22 11:19] LABS: Slide Review Reflex No
[2024-01-22 11:30] LABS: Albumin* 4.2 g/dL (3.3-5.0); Chloride* 108 mmol/L (96-114); Sodium* 138 mmol/L (135-149)
[2024-01-22 11:31] LABS: Potassium* 4.3 mmol/L (3.6-5.1)
[2024-01-22 11:33] LABS: Alanine Aminotransferase* 18 U/L (4-35); Alkaline Phosphatase* 61 U/L (40-150); Anion Gap 5 mEq/L (7-15); Aspartate Amino Transferase* 23 U/L (12-35); Bilirubin Total* 1.8 mg/dL (0.1-1.5); Blood Urea Nitrogen* 16 mg/dL (7-30); Carbon Dioxide* 25 mmol/L (20-32); Creatinine* 0.8 mg/dL (0.5-1.5); Estimated Glomerular Filt Rate 80 ml/min; Glucose* 115 mg/dL (60-115); Total Protein* 7.2 g/dL (6.0-8.3)
[2024-01-22 11:34] LABS: Calcium* 9.3 mg/dL (8.4-10.6)
--- NOTE | 2024-01-22 15:15 | ONC.NURNOTE ---
Lab results reviewed by this sign writer hand as stable within patients norm- noted flucutation in bili called to Vanessa- starts lenolidamide tomorrow
== END 2024-01-27 23:59 | disposition home or self-care (01) ==
LOC: CCIC 10:30
PROVIDERS: Clinical Nurse Specialist; PCP Family Medicine; Referring Provider Family Medicine; Visit Provider Internal Medicine Hematology & Oncology
DX: C90.01 Multiple myeloma in remission (principal)
CPT/HCPCS: 36415; 80053; 82784; 83520; 84155; 84156; 84165; 85025; 86334; 86335; 99212; 99214

== ENCOUNTER 2024-06-15 13:01 | Outpatient (CLI) | payer MEDICARE, SELFPAY | END 2024-06-15 13:02 | disposition home or self-care (01) | LOC: NFLDREF 06-16 10:55 | PROVIDERS: PCP Family Medicine; Referring Provider Family Medicine; Visit Provider Nurse Practitioner Family | DX: R30.0 Dysuria (principal) | CPT/HCPCS: 87086; 87186 ==

== ENCOUNTER 2024-08-04 10:00 | Outpatient (RCR) | payer MEDICARE, BC, SELFPAY ==
[2024-02-18 11:09] LABS: Basophils Percent Auto 1.2 % (0.0-3.0); Eosinophils Percent Auto 5.5 % (0.0-7.0); Hematocrit 38.4 % (33.0-51.0); Hemoglobin* 13.1 gm/dL (12.0-16.0); Immature Granulocytes Pct Auto 0.5 %; Lymphocytes Percent Auto 36.8 % (20-44); Mean Corpuscular HGB Conc 34 gm/dL (32-36); Mean Corpuscular Hemoglobin 31 pg (26-34); Mean Corpuscular Volume 91 fL (80-100); Monocytes Percent Auto 13.6 % (0.0-11.0); Neutrophils Percent Auto 42.4 % (42.0-72.0); Platelet Count* 211 K/uL (140-440); RDW Coefficient of Variation % 14.1 % (11.5-15.5); Red Blood Count 4.23 m/uL (4.00-5.20); White Blood Count* 4.19 K/uL (4.50-11.00)
[2024-02-18 11:11] LABS: Slide Review Reflex No
[2024-02-18 11:24] LABS: Albumin* 4.1 g/dL (3.3-5.0); Chloride* 108 mmol/L (96-114); Sodium* 138 mmol/L (135-149)
[2024-02-18 11:26] LABS: Anion Gap 6 mEq/L (7-15); Bilirubin Total* 1.3 mg/dL (0.1-1.5); Carbon Dioxide* 24 mmol/L (20-32); Creatinine* 0.7 mg/dL (0.5-1.5); Estimated Glomerular Filt Rate 94 ml/min
[2024-02-18 11:27] LABS: Alanine Aminotransferase* 18 U/L (4-35); Alkaline Phosphatase* 64 U/L (40-150); Aspartate Amino Transferase* 23 U/L (12-35); Blood Urea Nitrogen* 17 mg/dL (7-30); Glucose* 95 mg/dL (60-115); Total Protein* 7.4 g/dL (6.0-8.3)
[2024-02-18 11:28] LABS: Calcium* 9.5 mg/dL (8.4-10.6)
--- NOTE | 2024-02-18 14:54 | ONC.NURNOTE ---
Lab results reviewed by APRN. Humphrey to stay on current dose. Called patient to relay results and recommendations and future appointments. All questions answered.
[2024-03-17 11:18] LABS: Basophils Percent Auto 1.5 % (0.0-3.0); Eosinophils Percent Auto 6.8 % (0.0-7.0); Hematocrit 37.9 % (33.0-51.0); Mean Corpuscular HGB Conc 34 gm/dL (32-36); Mean Corpuscular Hemoglobin 31 pg (26-34); Mean Corpuscular Volume 90 fL (80-100); Monocytes Percent Auto 13.6 % (0.0-11.0); Neutrophils Percent Auto 43.1 % (42.0-72.0); Platelet Count* 196 K/uL (140-440); RDW Coefficient of Variation % 14.8 % (11.5-15.5); White Blood Count* 3.37 K/uL (4.50-11.00)
[2024-03-17 11:24] LABS: Slide Review Reflex No
[2024-03-17 11:41] LABS: Albumin* 4.1 g/dL (3.3-5.0); Chloride* 107 mmol/L (96-114)
[2024-03-17 11:42] LABS: Potassium* 4.1 mmol/L (3.6-5.1); Sodium* 140 mmol/L (135-149)
[2024-03-17 11:44] LABS: Alanine Aminotransferase* 18 U/L (4-35); Alkaline Phosphatase* 69 U/L (40-150); Anion Gap 6 mEq/L (7-15); Aspartate Amino Transferase* 28 U/L (12-35); Bilirubin Total* 1.8 mg/dL (0.1-1.5); Blood Urea Nitrogen* 12 mg/dL (7-30); Carbon Dioxide* 27 mmol/L (20-32); Creatinine* 0.8 mg/dL (0.5-1.5); Estimated Glomerular Filt Rate 80 ml/min; Glucose* 92 mg/dL (60-115); Total Protein* 7.1 g/dL (6.0-8.3)
[2024-03-17 11:45] LABS: Calcium* 8.8 mg/dL (8.4-10.6)
--- NOTE | 2024-03-17 12:43 | ONC.NURNOTE ---
Lab with in parameter to start lenolidamide called to Vanessa and reviewed by Dr Dooley RTC next week
[2024-03-19 20:37] LABS: Free Urinary Kappa Excret/Day 23.49 mg/d; Free Urinary Lambda Excr/Day 3.18 mg/d; Free Urine Kappa Light Chains 12.87 mg/L (0.00-32.90); Free Urine LAmbda Light Chains 1.74 mg/L (0.00-3.79); Hours Collected 24 hr; Total Volume 1825 mL
[2024-03-20 00:54] LABS: Albumin 3.99 g/dL (3.75-5.01); Alpha 1 Globulin 0.27 g/dL (0.19-0.46); Alpha 2 Globulin 0.59 g/dL (0.48-1.05); Immunofixation IFE Done; Immunoglobulin A 168 mg/dL (68-408); Immunoglobulin G 924 mg/dL (768-1632); Immunoglobulin M 30 mg/dL (35-263); Kappa Qnt Free Light Chains 23.46 mg/L (3.30-19.40); Kappa/Lambda Light Chain Ratio 0.75 (0.26-1.65); Lambda Qnt Free Light Chains 31.47 mg/L (5.71-26.30); Total Protein, Serum 6.6 g/dL (6.3-8.2)
[2024-04-14 09:40] LABS: Basophils Percent Auto 1.3 % (0.0-3.0); Eosinophils Percent Auto 3.9 % (0.0-7.0); Hematocrit 39.4 % (33.0-51.0); Hemoglobin* 13.5 gm/dL (12.0-16.0); Immature Granulocytes Pct Auto 0.3 %; Lymphocytes Percent Auto 48.8 % (20-44); Mean Corpuscular HGB Conc 34 gm/dL (32-36); Mean Corpuscular Hemoglobin 31 pg (26-34); Mean Corpuscular Volume 90 fL (80-100); Monocytes Percent Auto 13.9 % (0.0-11.0); Neutrophils Percent Auto 31.8 % (42.0-72.0); Platelet Count* 202 K/uL (140-440); RDW Coefficient of Variation % 14.7 % (11.5-15.5); Red Blood Count 4.38 m/uL (4.00-5.20); White Blood Count* 3.89 K/uL (4.50-11.00)
[2024-04-14 09:41] LABS: Slide Review Reflex No
[2024-04-14 09:49] LABS: Chloride* 108 mmol/L (96-114)
[2024-04-14 09:50] LABS: Albumin* 4.5 g/dL (3.3-5.0); Potassium* 3.8 mmol/L (3.6-5.1); Sodium* 137 mmol/L (135-149)
[2024-04-14 09:53] LABS: Alanine Aminotransferase* 20 U/L (4-35); Alkaline Phosphatase* 66 U/L (40-150); Anion Gap 6 mEq/L (7-15); Aspartate Amino Transferase* 27 U/L (12-35); Bilirubin Total* 2.6 mg/dL (0.1-1.5); Blood Urea Nitrogen* 18 mg/dL (7-30); Carbon Dioxide* 23 mmol/L (20-32); Creatinine* 0.8 mg/dL (0.5-1.5); Estimated Glomerular Filt Rate 80 ml/min; Glucose* 107 mg/dL (60-115); Total Protein* 7.4 g/dL (6.0-8.3)
[2024-04-14 09:54] LABS: Calcium* 8.7 mg/dL (8.4-10.6)
[2024-04-21 10:04] LABS: Bilirubin Direct* 0.1 mg/dL (0.0-0.5)
[2024-04-21 12:04] LABS: Bilirubin Total* 2.4 mg/dL (0.1-1.5)
[2024-04-29 16:45] LABS: Albumin* 4.3 g/dL (3.3-5.0)
[2024-04-29 16:48] LABS: Aspartate Amino Transferase* 28 U/L (12-35); Bilirubin Direct* 0.4 mg/dL (0.0-0.5); Bilirubin Total* 2.2 mg/dL (0.1-1.5); Total Protein* 7.1 g/dL (6.0-8.3)
[2024-04-29 16:49] LABS: Alanine Aminotransferase* 17 U/L (4-35); Alkaline Phosphatase* 68 U/L (40-150)
[2024-04-29 17:20] LABS: Hepatitis B Surface Antigen* Negative (Negative)
[2024-04-29 17:37] LABS: Hepatitis C Virus Antibody* Negative (Negative)
[2024-05-01 18:08] LABS: Hepatitis B Core Antibodies Negative (Negative); Hepatitis B Core Antibody, IgM Negative (Negative)
--- NOTE | 2024-05-04 11:28 | ONC.NURNOTE ---
Addendum entered by Whitney Eason RN 05/07/24 15:25: Patient called looking for directions on taking Revlimid. Explained to patient MD not in and wasn't addressed yet so we will ask MD Friday. (Her MD will be back in) Patient fine with this stating, Ana thought we would start next week anyways Original Note: Ongoing monitoring of elevated bilirubin results of last weeks testing of labs and US reviewed with patient today Vanessa reviewed sequence of events since 04/14/2404/14 Day 1 Revlimid Bili 2.6- instructed ok to start Revlimid with repeat LFTS in 1 week 04/21 Bili 2.4- Dr Dooley phoned patient to hold Revlimid X 2 weeks (this was verbally communicated to this insurance writer from Vanessa)- appts made for additional lab testing and liver US 04/29 Bili 2.2- Rev still on hold Liver US and labs done Tomorrow will be 2 weeks since Rev held- Vanessa wants to know if she should restart Rev tomorrow or wait until due to start next 28 day cycle of Rev in 1 week with routine monthly lab due
[2024-05-12 10:06] LABS: Basophils Percent Auto 0.4 % (0.0-3.0); Eosinophils Percent Auto 3.1 % (0.0-7.0); Hemoglobin* 13.7 gm/dL (12.0-16.0); Immature Granulocytes Pct Auto 0.2 %; Lymphocytes Percent Auto 31.3 % (20-44); Mean Corpuscular HGB Conc 34 gm/dL (32-36); Mean Corpuscular Hemoglobin 31 pg (26-34); Mean Corpuscular Volume 91 fL (80-100); Monocytes Percent Auto 8.5 % (0.0-11.0); Neutrophils Percent Auto 56.5 % (42.0-72.0); Platelet Count* 210 K/uL (140-440); RDW Coefficient of Variation % 14.3 % (11.5-15.5); Red Blood Count 4.38 m/uL (4.00-5.20); White Blood Count* 4.47 K/uL (4.50-11.00)
[2024-05-12 10:10] LABS: Slide Review Reflex No
[2024-05-12 10:21] LABS: Albumin* 4.5 g/dL (3.3-5.0); Chloride* 105 mmol/L (96-114)
[2024-05-12 10:22] LABS: Potassium* 4.4 mmol/L (3.6-5.1); Sodium* 138 mmol/L (135-149)
[2024-05-12 10:24] LABS: Alkaline Phosphatase* 70 U/L (40-150); Anion Gap 7 mEq/L (7-15); Aspartate Amino Transferase* 28 U/L (12-35); Bilirubin Total* 2.3 mg/dL (0.1-1.5); Blood Urea Nitrogen* 18 mg/dL (7-30); Carbon Dioxide* 26 mmol/L (20-32); Creatinine* 0.9 mg/dL (0.5-1.5); Estimated Glomerular Filt Rate 70 ml/min; Total Protein* 7.6 g/dL (6.0-8.3)
[2024-05-12 10:25] LABS: Alanine Aminotransferase* 19 U/L (4-35); Calcium* 9.5 mg/dL (8.4-10.6); Glucose* 115 mg/dL (60-115)
--- NOTE | 2024-05-12 12:55 | ONC.NURNOTE ---
Lab results reviewed by Dr Dooley and called to Jasmine berry continues to be elevated- patient has been off of lenalidomide since 04/21/24 to start with next cycle tomorrow continue with labs monthly due for annual with Dr Trinidad in June denies alcohol or tylenol use
--- NOTE | 2024-05-27 11:47 | ONC.NURNOTE ---
Vanessa has 14 extra lenalidomide from previous cycle- dose was held due to increase in bili- and she only took 05/30 caps next RX for #7 days only
[2024-06-09 10:15] LABS: Basophils Percent Auto 2.5 % (0.0-3.0); Eosinophils Percent Auto 5.9 % (0.0-7.0); Hematocrit 37.9 % (33.0-51.0); Hemoglobin* 12.6 gm/dL (12.0-16.0); Lymphocytes Percent Auto 32.9 % (20-44); Mean Corpuscular HGB Conc 33 gm/dL (32-36); Mean Corpuscular Hemoglobin 31 pg (26-34); Mean Corpuscular Volume 92 fL (80-100); Monocytes Percent Auto 12.1 % (0.0-11.0); Neutrophils Percent Auto 46.6 % (42.0-72.0); Platelet Count* 210 K/uL (140-440); RDW Coefficient of Variation % 14.4 % (11.5-15.5); Red Blood Count 4.12 m/uL (4.00-5.20); White Blood Count* 3.56 K/uL (4.50-11.00)
[2024-06-09 10:19] LABS: Slide Review Reflex No
[2024-06-09 10:41] LABS: Albumin* 4.1 g/dL (3.3-5.0); Chloride* 109 mmol/L (96-114); Potassium* 4.4 mmol/L (3.6-5.1); Sodium* 137 mmol/L (135-149)
[2024-06-09 10:43] LABS: Anion Gap 5 mEq/L (7-15); Aspartate Amino Transferase* 25 U/L (12-35); Bilirubin Total* 2.2 mg/dL (0.1-1.5); Carbon Dioxide* 23 mmol/L (20-32); Creatinine* 0.8 mg/dL (0.5-1.5); Estimated Glomerular Filt Rate 80 ml/min; Total Protein* 6.9 g/dL (6.0-8.3)
[2024-06-09 10:44] LABS: Alanine Aminotransferase* 18 U/L (4-35); Alkaline Phosphatase* 65 U/L (40-150); Blood Urea Nitrogen* 13 mg/dL (7-30); Glucose* 133 mg/dL (60-115)
[2024-06-09 10:45] LABS: Calcium* 8.9 mg/dL (8.4-10.6)
--- NOTE | 2024-06-09 15:05 | ONC.NURNOTE ---
labs reviewed by Dr Dooley and patient called with ok to start lenalidomide noted bili 2.2 persistently slightly elevated next appts discussed due to be seen late Jun by Dr Trinidad with Myeloma labs and 24 hour urine patient has messaged the team at [facility] and is awaiting orders and appt dates she would be due for lab on 07/07/24 samson will call this office when she has her appts set at [facility]
--- NOTE | 2024-06-16 14:49 | ONC.NURNOTE ---
Patient called inquiring about 24 hour urine test and if it was needed at the end of this month. Patient normally does labs and a 24 hour urine every 3 months with us, but patient has her annual visit with Dr. Amos banks in [place] and will have labs and a CT scan done on 07/[address] Trinidad on 07/14. Patient called [facility] and they stated they did not need a 24 hour urine for their visit. Note left for Dr. Dooley to address if 24 hour urine is needed for our clinic. Patient notified and will be expecting a call next week once this is clarified.
--- NOTE | 2024-06-21 13:22 | ONC.NURNOTE ---
Coordination of care with Dr Miah Mendez has an annual SCT follow up appt with a Hem provider at [facility] 07/14 (not Dr Trinidad)- he is not available for 2-3 months Vanessa checked with team about a 24 hour urine- and she was told it is not needed Dr Dooley aware- and if [facility] does not need to follow anymore then we will follow their recommendation vanessa will follow up with us after lab drawn at [facility] on 07/08 to confirm labs are with in parameters to start lenalidomide no follow up needed with Dr Dooley until late September because of Sept appts at [facility] next appts and plan reviewed with Vanessa
[2024-07-09 09:09] LABS: Fecal Occult Blood* Negative (Negative)
[2024-07-09 09:16] LABS: Potassium* 4.6 mmol/L (3.6-5.1)
[2024-07-09 09:18] LABS: Bilirubin Total* 2.1 mg/dL (0.1-1.5)
--- NOTE | 2024-07-09 09:29 | ONC.NURNOTE ---
Labs reviewed with Vanessa stool guiac negative to start lenalidomide next appts reviewed Roman appt next week
--- NOTE | 2024-07-28 10:42 | ONC.NURNOTE ---
phone call to patient: regarding annual Roman Andrzej appt in Jun- these were Heme's recommendations -annual 24 hour urine -Start 1000mcg Vit B12 - patient has started recommended she talk to her PCP about rechecking B12 in Aug per Lerona Andrzej recommendation -Colonscopy scheduled for 09/08 -Referral to labor relations manager made- has not heard about appt yet
[2024-08-04 11:24] LABS: Basophils Percent Auto 1.3 % (0.0-3.0); Hematocrit 37.9 % (33.0-51.0); Hemoglobin* 12.6 gm/dL (12.0-16.0); Immature Granulocytes Pct Auto 0.3 %; Mean Corpuscular HGB Conc 33 gm/dL (32-36); Mean Corpuscular Hemoglobin 30 pg (26-34); Mean Corpuscular Volume 91 fL (80-100); Monocytes Percent Auto 12.5 % (0.0-11.0); Neutrophils Percent Auto 47.9 % (42.0-72.0); Platelet Count* 186 K/uL (140-440); RDW Coefficient of Variation % 14.5 % (11.5-15.5); Red Blood Count 4.17 m/uL (4.00-5.20); White Blood Count* 3.84 K/uL (4.50-11.00)
[2024-08-04 11:27] LABS: Slide Review Reflex No
[2024-08-04 11:34] LABS: Albumin* 4.3 g/dL (3.3-5.0); Chloride* 106 mmol/L (96-114); Potassium* 4.1 mmol/L (3.6-5.1); Sodium* 137 mmol/L (135-149)
[2024-08-04 11:37] LABS: Alanine Aminotransferase* 19 U/L (4-35); Alkaline Phosphatase* 56 U/L (40-150); Anion Gap 7 mEq/L (7-15); Aspartate Amino Transferase* 24 U/L (12-35); Bilirubin Total* 1.7 mg/dL (0.1-1.5); Blood Urea Nitrogen* 16 mg/dL (7-30); Carbon Dioxide* 24 mmol/L (20-32); Creatinine* 0.8 mg/dL (0.5-1.5); Estimated Glomerular Filt Rate 80 ml/min; Glucose* 99 mg/dL (60-115); Total Protein* 7.2 g/dL (6.0-8.3)
[2024-08-04 11:38] LABS: Calcium* 9.4 mg/dL (8.4-10.6)
== END 2024-08-16 23:59 | disposition home or self-care (01) ==
LOC: CCIC 10:00
PROVIDERS: Clinical Nurse Specialist; PCP Internal Medicine; Referring Provider Family Medicine; Visit Provider Internal Medicine Hematology & Oncology
DX: C90.01 Multiple myeloma in remission (principal)
CPT/HCPCS: 36415; 76705; 80053; 80076; 82247; 82248; 82270; 82784; 83520; 84132; 84155; 84156; 84165; 85025; 86334; 86335; 86704; 86705; 86803; 87340; 99214; G0463

== ENCOUNTER 2025-02-16 10:00 | Outpatient (RCR) | payer MEDICARE, BC, SELFPAY ==
[2024-09-01 11:40] LABS: Eosinophils Percent Auto 3.1 % (0.0-7.0); Hematocrit* 37.7 % (33.0-51.0); Hemoglobin* 12.6 gm/dL (12.0-16.0); Lymphocytes Percent Auto 33.1 % (20-44); Mean Corpuscular HGB Conc 33 gm/dL (32-36); Mean Corpuscular Hemoglobin 31 pg (26-34); Mean Corpuscular Volume 92 fL (80-100); Monocytes Percent Auto 16.9 % (0.0-11.0); Neutrophils Percent Auto 44.9 % (42.0-72.0); Platelet Count* 173 K/uL (140-440); RDW Coefficient of Variation % 14.4 % (11.5-15.5); Red Blood Count* 4.12 m/uL (4.00-5.20); White Blood Count* 3.54 K/uL (4.50-11.00)
[2024-09-01 11:42] LABS: Slide Review Reflex No
[2024-09-01 11:54] LABS: Albumin* 4.3 g/dL (3.3-5.0); Chloride* 104 mmol/L (96-114); Potassium* 3.9 mmol/L (3.6-5.1); Sodium* 137 mmol/L (135-149)
[2024-09-01 11:57] LABS: Alanine Aminotransferase* 16 U/L (4-35); Alkaline Phosphatase* 57 U/L (40-150); Anion Gap 5 mEq/L (7-15); Aspartate Amino Transferase* 22 U/L (12-35); Bilirubin Total* 2.1 mg/dL (0.1-1.5); Blood Urea Nitrogen* 14 mg/dL (7-30); Carbon Dioxide* 28 mmol/L (20-32); Creatinine* 0.8 mg/dL (0.5-1.5); Estimated Glomerular Filt Rate 80 ml/min; Glucose* 96 mg/dL (60-115); Total Protein* 7.2 g/dL (6.0-8.3)
[2024-09-01 11:58] LABS: Calcium* 9.2 mg/dL (8.4-10.6)
[2024-09-29 10:20] LABS: Basophils Percent Auto 1.8 % (0.0-3.0); Hematocrit* 37.3 % (33.0-51.0); Hemoglobin* 12.6 gm/dL (12.0-16.0); Lymphocytes Percent Auto 40.7 % (20-44); Mean Corpuscular HGB Conc 34 gm/dL (32-36); Mean Corpuscular Hemoglobin 30 pg (26-34); Mean Corpuscular Volume 89 fL (80-100); Neutrophils Percent Auto 42.5 % (42.0-72.0); Platelet Count* 211 K/uL (140-440); RDW Coefficient of Variation % 14.1 % (11.5-15.5); Red Blood Count* 4.17 m/uL (4.00-5.20); White Blood Count* 3.34 K/uL (4.50-11.00)
[2024-09-29 10:22] LABS: Slide Review Reflex No
[2024-09-29 10:34] LABS: Albumin* 4.3 g/dL (3.3-5.0); Chloride* 104 mmol/L (96-114); Potassium* 4.1 mmol/L (3.6-5.1); Sodium* 136 mmol/L (135-149)
[2024-09-29 10:37] LABS: Alanine Aminotransferase* 20 U/L (4-35); Alkaline Phosphatase* 61 U/L (40-150); Anion Gap 9 mEq/L (7-15); Aspartate Amino Transferase* 27 U/L (12-35); Bilirubin Total* 1.1 mg/dL (0.1-1.5); Blood Urea Nitrogen* 14 mg/dL (7-30); Carbon Dioxide* 23 mmol/L (20-32); Creatinine* 0.7 mg/dL (0.5-1.5); Estimated Glomerular Filt Rate 94 ml/min; Glucose* 114 mg/dL (60-115); Total Protein* 7.2 g/dL (6.0-8.3)
[2024-09-29 10:38] LABS: Calcium* 9.2 mg/dL (8.4-10.6)
[2024-10-03 08:57] LABS: Albumin 4.03 g/dL (3.75-5.01); Alpha 1 Globulin 0.31 g/dL (0.19-0.46); Alpha 2 Globulin 0.65 g/dL (0.48-1.05); Immunofixation IFE Done; Immunoglobulin A 220 mg/dL (68-408); Immunoglobulin G 1026 mg/dL (768-1632); Immunoglobulin M 54 mg/dL (35-263); Kappa/Lambda Light Chain Ratio 0.89 (0.26-1.65); Lambda Qnt Free Light Chains 28.95 mg/L (5.71-26.30); Total Protein, Serum 6.8 g/dL (6.3-8.2)
[2024-10-27 09:47] LABS: Basophils Percent Auto 1.5 % (0.0-3.0); Eosinophils Percent Auto 3.5 % (0.0-7.0); Hematocrit* 37.1 % (33.0-51.0); Hemoglobin* 12.5 gm/dL (12.0-16.0); Mean Corpuscular HGB Conc 34 gm/dL (32-36); Mean Corpuscular Hemoglobin 30 pg (26-34); Mean Corpuscular Volume 89 fL (80-100); Platelet Count* 190 K/uL (140-440); RDW Coefficient of Variation % 14.8 % (11.5-15.5); Red Blood Count* 4.18 m/uL (4.00-5.20); White Blood Count* 3.43 K/uL (4.50-11.00)
[2024-10-27 09:53] LABS: Slide Review Reflex No
[2024-10-27 10:12] LABS: Albumin* 4.1 g/dL (3.3-5.0); Chloride* 108 mmol/L (96-114); Potassium* 3.7 mmol/L (3.6-5.1); Sodium* 138 mmol/L (135-149)
[2024-10-27 10:14] LABS: Creatinine* 0.6 mg/dL (0.5-1.5); Estimated Glomerular Filt Rate 97 ml/min
[2024-10-27 10:15] LABS: Alanine Aminotransferase* 16 U/L (4-35); Alkaline Phosphatase* 67 U/L (40-150); Anion Gap 7 mEq/L (7-15); Aspartate Amino Transferase* 25 U/L (12-35); Bilirubin Total* 2.3 mg/dL (0.1-1.5); Blood Urea Nitrogen* 9 mg/dL (7-30); Carbon Dioxide* 23 mmol/L (20-32); Glucose* 92 mg/dL (60-115); Total Protein* 6.8 g/dL (6.0-8.3)
[2024-10-27 10:16] LABS: Calcium* 8.7 mg/dL (8.4-10.6)
--- NOTE | 2024-10-27 15:34 | ONC.NURNOTE ---
Labs reviewed by Dr Miah cabrera to start lenalidomide bili elevated this month rechecking LFTs in [address] Dooley orders
--- OUTSIDE RECORDS SUMMARY | 2024-11-11 07:05 | XMS_ITS | Clinical Summary ---
Author Organization [employer] [facility] Address [place], [place] [address] Care Team Providers Care Seat Scooper Machine Name Role Phone Trevor Rogers MD Primary Care Provider Allergies Active Allergy Reactions Criticality Noted Date Comments Cetirizine Hives 10/27/2014 Medications REVLIMID 10 mg cap Take 10 mg by mouth. 0 9 Active aspirin (ECOTRIN) 81 mg enteric coated tablet Take 1 Tablet (81 mg) by mouth once daily with a meal. 0 2 Active colestipoL (COLESTID) 1 gram tablet Take 1 g by mouth in the morning and 1 g in the evening. 2 Active cholecalciferol (VITAMIN D3) 2,000 unit capsule Take 50 mcg by mouth. Active erythromycin base 2% (ERYGEL) 2 % gel Apply 1 Application topically to affected area(s). 4 Active Magnesium Gluconate 27.5 mg magne- sium (500 mg) tab Take 500 mg by mouth. Active cyanocobalamin (VITAMIN B12) as quarter tablet Take by mouth once daily. Active Active Problems Problem Noted Date Diagnosed Date Hx of stem cell transplant 06/13/2021 Obesity 06/13/2021 Adenomatous colon polyp 09/15/2019 Overview (09/15/2019): Colonoscopy 09/2019 polyps, repeat in 5 years Lumbar radiculopathy 08/19/2019 Multiple myeloma 04/07/2019 Neuropathic pain 04/07/2019 Osteopenia of lumbar spine 08/04/2018 DDD (degenerative disc disease), thoracic 2017 Resolved Problems Problem Noted Date Diagnosed Date Resolved Date Left foot drop 08/19/2019 06/13/2021 Encounters Date Type Department Care Team Description 09/20/2024 3:45 PM BREAKDOWN PERSON Phone Office Visit [facility] [address] [place] [address] Rin Cain PA Covid-19 Positive Result 09/20/2024 Travel 09/08/2024 1:29 PM CDT Anesthesia Event [facility] [address] [place] [address] Antonio Bueno DO 09/08/2024 1:18 PM CDT - 09/08/2024 1:59 PM CDT Surgery [facility] [address] [place] [address] Ivonne Conner MD COLONOSCOPY WITH POLYPECTOMY 09/08/2024 12:17 PM CDT - 09/08/2024 3:10 PM CDT Hospital Encounter [facility] [address] [place] [address] Ivonne Conner MD Discharge Disposition: Home Self Care 09/08/2024 Travel from Last 3 Months Immunizations Name Administration Dates Next Due AMB INFLUENZA IIV3 (AGE 65+ YRS) PF (Flu Clinic Only) 10/14/2019 Amb Influenza, Inactivated A IIV4 (Age 65+ Years) Preserv Free 08/08/2020 COVID-19 vaccine (ZenSuite NTech 30mcg/0.3mL) 12YO+ BIVALENT PF, MDV 08/07/2022 DTaP 02/29/2020,12/28/2019,10/25/2019 HIB PRP-OMP (PedvaxHIB) 02/29/2020,12/28/2019 HIB PRP-T (ActHIB,Hiberix) 10/25/2019 HepA-HepB (Twinrix) 10/25/2019 Hepatitis A (Adult) 04/25/2020,10/17/2008,1997 Hepatitis B (Adult) 04/25/2020,12/28/2019 Inactivated Polio Vaccine 12/28/2019,10/25/2019 Influenza, High-dose Quadriv alent Inactivated 08/20/2021 Influenza, IIV3 (Age >=3 years) 10/17/2008 Influenza, IIV4 (=>6mos) MDV 10/24/2018 Influenza, Inactivated AIIV4 (Age 65+ Years) Preserv Free 08/07/2022 MENINGOCOCCAL VACCINE 2 VIAL 2MO-55YO (MENVEO) 12/28/2019,10/25/2019 Pneumococcal Poly,23-Valent (Pneumovax) 04/25/2020,12/29/2018 Pneumococcal conj 13-Valent (Prevnar 13) 02/29/2020,12/28/2019,10/25/2019,11/02 Td (Age >=7 Years) 09/08/1998 Td, Preservative Free (age >= 7 Years) 7 Tdap 10/17/2008 Zoster (Shingrix-RZV, recombinant) 04/25/2020, Family History Medical History Relation Name Comments Cancer-prostate Brother Brain cancer Father Glioblastoma Cancer-prostate Father Heart Disease Father CABG in his 70 s Hyperlipidemia Father Sudden Maternal Grandfather Arthritis Mother djd Coronary artery disease Mother With stents Dementia Mother Hypertension Mother Diabetes Other none close Cancer Paternal Uncle brain, anothe r metastatic Cancer-breast No Family History Cancer-ovarian No Family History Relation Name Status Comments Brother Father Maternal Grandfather Mother Other Paternal Uncle Social History Tobacco Use Types Packs/Day Years Used Date Smoking Tobacco: Never Smokeless Tobacco: Never Tobacco Cessation:Counseling Given: Yes Alcohol Use Standard Drinks/Week Comments Not Currently 4 (1 standard drink = 0.6 oz pur e alcohol) occasional PHQ-2 Answer Date Recorded PHQ-2 TOTAL SCORE 0 08/07/2022 Social Connections Answer Date Recorded Frequency of Communication with Friends and Fami ly 0 08/07/2022 Financial Resource Strain Answer Date R ecorded Difficulty of Paying Living Expenses 3 08/07/2022 Difficulty of Paying Living Expenses Not on file 08/07/2022 Food Insecurity Answer Date Recorded Worried About Running Out of Food in the Last Ye ar 1 08/07/2022 Transportation Needs Answer Date Record ed Lack of Transportation (Medical) 1 08/07/2022 Housing Stability Answer Date Recorded Unable to Pay for Housing in the Last Year 1 08/07/2022 Comments No Sex and Gender Information Value Date Recorded Sex Assigned at Female 12/04/2020 9:33 AM BREAKDOWN PERSON Legal Sex Female 7:00 AM BREAKDOWN PERSON Gender Identity Female 12/04/2020 9:33 AM BREAKDOWN PERSON Sexual Orientation Straight 12/04/2020 9: 33 AM BREAKDOWN PERSON 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 Not on file Not on file Not on file Obstetrics History Last Filed Vital Signs Vital Sign Reading Time Taken Comments Blood Pressure 129/79 09/08/2024 3:01 PM CDT Pulse 64 09/08/2024 3:01 PM CDT Temperature 36.1 C (97 F) 09/08/2024 2:18 PM CDT Respiratory Rate 16 09/08/2024 3:01 PM CDT Oxygen Saturation 98% 09/08/2024 3:01 PM CDT Inhaled Oxygen Concentration - - Weight 76.7 kg (169 lb 3.2 oz) 09/08/2024 12:42 PM CDT Height 161.1 cm (5' 3.43) 08/30/2024 8:29 AM CD T Body Mass Index 29.57 08/30/2024 8:29 AM CDT Plan of Treatment Health Maintenance Due Date Last Done Comments RSV vaccine for adults or (1 - Risk 60-74 years 1-dose series) 2015 BMI (ht and wt on same day) for age 18+ 08/07/2023 08/07/2022, 06/13/2021, 01/05/2020, Additional history exists Depression screening for age 12+ 08/07/2023 08/07/2022, 06/13/2021, 01/05/2020, Additional history exists Medicare Wellness for age 65+ 08/08/2023 08/07/2022, 06/13/2021 Mammogram for age 45-75 09/04/2023 09/04/20, 12/04/2020, 11/24/2019, Additional history exists COVID-19 vaccine series ( season) 2024 08/07/2022, 02/19/2022, 07/13/2021, Additional history exists Influenza for age 65+ 07/11/2024 08/07/2022 , 08/20/2021, 08/08/2020, Additional history exists Pneumococcal series for age 50+ (4 of 4 - PCV20 or PCV21) 04/25/2025 04/25/2020, 02/29/2020, 12/28/2019, Additional history exists Lipids for age 45-75 08/07/2027 08/07/2022, 05/30/2021, 07/03/2013, Additional history exists Tetanus booster 09/02/2027 09/02/2017, 06/2008, 09/08/1998 Colonoscopy through age 75 09/08/202909/08, 09/14/2019, 09/14/2019, Additional history exists Tdap Completed 10/17/2008 Zoster (shingles) series for age 50+ Completed 04/25/2020, 10/25/2019 DEXA/DXA scan for age 65+ Completed 05/30/2021, 06/2009 Hepatitis C screening for ag e 18-79 Completed 05/30/2021 Procedures Procedure Name Priority Date/Time Associated Diagnosis Comments PATH TISSUE EXAM Today 09/08/2024 2:02 PM CDT COLONOSCOPY WITH POLYPECTOMY 09/08/2024 1:29 PM CDT cecal polyp Case Notes Miralax/Dulcolax Special Needs [id number] COLONOSCOPY 09/08/2024 1:25 PM CDT XR MAMMO MOLLY BILAT SCREEN Routine 09/04/2022 9:44 AM CDT Encounter for screening mammogram for malignant neoplasm of breast LIPID PANEL W REFLEX MEASURED LDL Routine 08/07/2022 10:49 AM CDT Hyperlipidemia, unspecified hyperlipidemia type XR DXA BONE DENSITY 2 SITES AXIAL Routine 05/30/2021 9:00 AM CDT Post-menopausal ANTI HCV Routine 05/30/2021 8:19 AM CDT Need for hepatitis C screening test from Last 3 Months or Most Recently Relevant to Health Maintenance Results * PATH TISSUE EXAM (09/08/2024 2:02 PM CDT) Case Report Pathology Report Case: [id number] Authorizing Provider: Ivonne Conner Collected: 09/08/2024 1402 MD Sammi Ordering Location: [facility] Received: 09/09/2024 0648 Pathologist: Smitha Easley DO Specimen: Cecal Polyp 09/13/2024 11:31 AM BREAKDOWN PERSON [facility] Final Diagnosis A) COLON, CECUM, POLYPECTOMY: 1. Tubular adenoma 2. Negative for high grade dysplasia 3. Per the colonoscopy report: a. Polyp size: 8 mm b. Resection: Complete c. Retrieval: Complete 09/13/2024 11:31 AM [facility] Clinical Information Ms. Matias is a 68 y.o. who presents for colonoscopy examination. An 8 mm polyp was found in the cecum. 09/13/2024 11:31 AM [facility] Gross Description A) Received in formalin are 2 wilson mucosal fragments averaging 8 mm in greatest dimension, which are entirely submitted in one cassette. It is labeled with the patient's name and designated cecal polyp. Cheryl Whitley Noon 09/09/2024 12:48 PM 09/13/2024 11:31 AM [facility] Microscopic Description The final diagnosis is based on microscopic examination of appropriate sections of all specimens. 09/13/2024 11:31 AM [facility] Additional Information Interpreted at [facility] - [address], [place] [address] 09/13/2024 11:31 AM [facility] Polyp (Cecal Polyp) 09/08/2024 2:02 PM CDT 09/09/2024 6:48 AM CDT Ivonne Ortiz MD PATHOLOGY/CYTOLOGY Final Result [facility] [address] [place] [address], * COLONOSCOPY (09/08/2024 1:25 PM CDT) 09/08/2024 1:25 PM CDT Narrative Transcriptions Ivonne Conner MD - 09/08/2024 2:16 PM CDT Patient Name: Vanessa Matias Procedure Date: 09/08/2024 Gender: Female Date of : 1955 Admit Type: Ambulatory Procedure: Colonoscopy Proceduralist: Ivonne Perez MD Referring MD: Ivonne Perez MD Indications/Pre-Op Diagnosis: High risk colon cancer surveillance:Personal history of colonic polyps, Last colonoscopy: September 2019 Medications: Monitored Anesthesia Care Procedure Description: The procedure, indications, potential complications, (bleeding, perforation, infection, adverse medication reaction, missed lesionsor polyps) and alternatives available were explained to the patient, who appeared to understand and indicated this. Opportunity for questionswas provided and informed consent obtained. The endoscope [id number] was passed through the anus andadvanced to the cecum, identified by appendiceal orifice and ileocecal valve.The colonoscopy was performed without difficulty. The patient toleratedthe procedure well. The quality of the bowel preparation was evaluatedusing the BBPS (Wishon Bowel Preparation Scale) with scores of: Right Colon= 3, Transverse Colon = 3 and Left Colon = 3 (entire mucosa seen wellwith no residual staining, small fragments of stool or opaque liquid). The total BBPS score equals 9. Complications: No immediate complications. Estimated Blood Loss & Specimen: Estimated blood loss was minimal. Specimen collected: Yes and sent to Laboratory Findings: The perianal and digital rectal examinations were normal. An 8 mm polyp was found in the cecum. The polyp was sessile. Thepolyp was removed with a cold snare. Resection and retrieval werecomplete. The exam was otherwise without abnormality on direct and retroflexion views. Impressions/Post-Op Diagnosis: - One 8 mm polyp in the cecum, removed with a cold snare. Resectedand retrieved. - The examination was otherwise normal on direct and retroflexionviews. Recommendation: - Await pathology results. Moderate Sedation: see anesthesia report Ivonne Perez MD 09/08/2024 2:16:52 PM This report has been signed electronically. Note Initiated On: 09/08/2024 1:25 PM Ivonne Ortiz MD PROCEDURE ORD Fin al Result * XR MAMMO MOLLY BILAT SCREEN (09/04/2022 9:44 AM CDT) Anatomical Region Laterality Modality BREASTS, Breast Left, Breast Right Bilateral Mammography Impressions 09/04/2022 2:16 PM CDT There is no radiographic evidence for malignancy. Recommend annual mammograms. MAMMOGRAM ASSESSMENT: ACR 1 Negative PATIENTS: You will also receive a letter with your examination results in an easy to read format. If you have questions about your results, please contact your referring provider. Narrative 09/04/2022 2:16 PM CDT For Patients: As a result of the 21st Century Cures Act, medical imaging exams and procedure reports are released immediately into your electronic medical record. You may view this report before your referring provider. If you have questions, please contact your health care provider. XR MAMMO MOLLY BILAT SCREEN [[id number]] CLINICAL HISTORY: This is an asymptomatic 66 y.o. patient. INDICATION FOR EXAM: Mammogram Screening. TECHNIQUE: CC & MLO views were obtained. This study was evaluated with the assistance of Computer-Aided Detection. Breast Tomosynthesis was used in interpretation. COMPARISON FILM: Yes 12/04/20 [facility] 11/24/19 [facility] FINDINGS: The breasts have scattered areas of fibroglandular density. There are no dominant masses, suspicious micro calcifications or areas of architectural distortion. Trevor Rogers MD MAMMO Final Result * (ABNORMAL) LIPID PANEL W REFLEX MEASURED LDL (08/07/2022 10:49 AM CDT) CHOLESTEROL,TOTAL 210(H) 100 - 199 mg/dL 08/07/2022 7:47 PM CDT [facility] TRIGLYCERIDES 241(H) <150 mg/dL 08/07/2022 7:47 PM CDT [facility] HDL CHOLESTEROL 108 >40 mg/dL 7:47 PM CDT [facility] NON-HDL CHOLESTEROL 102 <145 mg/dl 08/07/2022 7:47 PM CDT [facility] CHOL/HDL RATIO 1.94 <4.50 08/07/2022 7:47 PM CDT [facility] LDL CHOLESTEROL 54 <=130 mg/dL 08/07/2022 7:47 PM CDT [facility] VLDL CHOLESTEROL 48(H) <=30 mg/dL 08/07/2022 7:47 PM CDT [facility] PROVIDER ORDERED STATUS RANDOM 08/07/2022 7:47 PM CDT [facility] Blood BLOOD SPECIMEN / Unknown Venipuncture / Unknown 08/07/2022 10:49 AM CDT 08/07/2022 10:49 AM CDT Trevor Rogers MD CHEMISTRY Final Result [facility] [address] [place] [address], [place] * (ABNORMAL) XR DXA BONE DENSITY 2 SITES AXIAL (05/30/2021 9:00 AM CDT) Anatomical Region Laterality Modality Spine, HIPS, HIPL, HIPR Other Impressions 06/04/2021 8:42 AM CDT Osteopenia. RECOMMENDATIONS: The National Osteoporosis Foundation recommends pharmacologic treatment for patients with T-scores of -2.5 or less, patients with prior history of fragility fractures, or patients with 10-year probability of greater than 3% at hips or greater than 20% of suffering major osteoporotic fractures. Recommend continued optimization of calcium and vitamin D intake through dietary means and/or supplementation and regular exercise. Repeat scan recommended in 3-5 years. Asuncion Espinosa PA-C [facility] 06/04/2021 Narrative 06/04/2021 8:42 AM CDT XR DXA Bone Mineral Density (BMD) EXAM LOCATION: [address] [address] PATIENT NAME: Vanessa Matias DATE OF : 1955 EXAM DATE: 05/30/2021 REQUESTING PROVIDER: Trevor Rogers MD GENDER AT : female HEIGHT: 5' 4.02 (01/05/2020) WEIGHT: 189 lb 3.2 oz (05/24/2021) MENOPAUSAL STATUS: Postmenopausal RACE/ETHNICITY: White RISK FACTORS: White Race CURRENT MEDICATION FOR BONE LOSS: Zolendronic Acid (Reclast, Zometa) - 01/28 INDICATION: Screening for osteoporosis COMPARISON DATE(S): 2008 DXA scans are compared to prior studies for a patient only when the two (or more) studies were performed on the same scanner. It is not possible to compare data generated on one scanner to data from another because there are not standards in DXA equipment. This applies even if the two scanners are made by the same materials manager. PROCEDURE: Dual-energy x-ray absorptiometry performed with routine technique. Reporting is completed in the form of a T-score. The T-score represents the standard deviation from peak bone mass based on young healthy adult. A Z-score is used for diagnosis in premenopausal women, and for men under the age of 50. FINDINGS: RESULT LUMBAR SPINE L1 - L4 BMD: 1.104 g/cm2 T-Score: - 0.7 Z-Score: + 0.2 Comparison to most recent scan in 2008: Increase 5.5%. RESULT FEMORAL NECK Right Total Femoral Neck BMD: 0.874 g/cm2 T-Score: - 1.2 Z-Score: - 0.1 RESULT TOTAL HIP Bilateral Total Hip BMD: 0.890 g/cm2 T-Score: - 0.9 Z-Score: - 0.2 Comparison to most recent scan in 2009: Decrease 5.2%. WHO criteria: Normal: T-score at or above -1 SD Osteopenia: T-score between -1.1 and -2.4 SD Osteoporosis: T-score at or below -2.5 SD us Trevor Rogers MD DEXA Final Result * ANTI HCV (05/30/2021 8:19 AM CDT) Pathologist [facility] HEPATITIS C ANTIBODY Non-React messi Non-React messi 05/30/2021 2:44 PM CDT [facility] [facility] Comment:Antibodies to HCV no t detected; does not exclude the possibility of exposure to HCV. Blood BLOOD SPECIMEN / Unknown Venipuncture / Unknown 05/30/2021 8:19 AM CDT 05/30/2021 8:19 AM CDT us Trevor Rogers MD SEND OUTS Final Result [facility] [address] [place] [address], [place] from Last 3 Months or Most Recently Relevant to Health Maintenance Insurance [employer] [place] [employer] [place] ONLY MEDICARE PART A HB ONLY [employer] [place] [employer] HB ONLY MEDICARE PART B HB ONLY Advance Directives Documents on File Type Date Recorded Patient Phlebotomist Supervisor/Instructor Expl anation Healthcare Directive 12/01/2012 2:35 PM AN ADVANCE DIRECTIVE, [facility], 11/20/2012 * Full Code (Latest Code Status on File) Date Activated Date Inactivated Comments 09/08/2024 12:33 PM 09/08/2024 5:14 PM Question Answer Comments Code Status Discussion: Not Discussed Care Teams Seat Scooper Machine Relationship Specialty Start Date End Date Trevor Rogers MD [address] [place] [address] PCP - General Family Practice 10/12/18
--- OUTSIDE RECORDS SUMMARY | 2024-11-11 07:05 | XMS_ITS | Continuity of Care Document ---
Author Name [facility] [email or web address] Address Unknown Organization Unknown Address Unknown Procedures FILTER APPLIED:Only known Procedures with Onset Date within the last 5 years Procedure Date Procedure Provider Additiona l Information Status OFFICE O/P EST MOD 30 MIN (38653) Completed ASSAY OF PROTEIN SERUM (85052) Completed IMMUNOASSAY QUANT NOS NONAB (43922) Completed ASSAY IGA/IGD/IGG/IGM EACH (85981) Completed ASSAY OF PROTEIN URINE (17370) Completed IMMUNOFIX E-PHORESIS SERUM (05756) Completed IMMUNFIX E-PHORSIS/URINE/CSF (77426) Completed PROTEIN E-PHORESIS SERUM (05625) Completed COMPLETE CBC W/AUTO DIFF WBC (70285) Completed ROUTINE VENIPUNCTURE (99973) Completed COMPREHEN METABOLIC PANEL (04430) Completed OFFICE O/P EST SF 10 MIN (85915) Completed OFFICE O/P EST MOD 30 MIN (31057) Completed IMMUNOFIX E-PHORESIS SERUM (67705) Completed PROTEIN E-PHORESIS SERUM (99253) Completed ASSAY OF PROTEIN URINE (51095) Completed ASSAY OF PROTEIN SERUM (11513) Completed IMMUNOASSAY QUANT NOS NONAB (26581) Completed ASSAY IGA/IGD/IGG/IGM EACH (22755) Completed IMMUNFIX E-PHORSIS/URINE/CSF (59433) Completed COMPREHEN METABOLIC PANEL (64188) Completed ROUTINE VENIPUNCTURE (71591) Completed COMPLETE CBC W/AUTO DIFF WBC (08448) Completed Encounters FILTER APPLIED:Only known Encounters with Admission Date within the last 5 years Encounter Location Admission Discharge Billing Code 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 [facility] SAHA
--- OUTSIDE RECORDS SUMMARY | 2024-11-11 07:05 | XMS_ITS | Clinical Summary ---
Author Organization [facility] Address [address] [place] [address] Care Team Providers Care Patient Case Coordinator Name Role Phone Abbey Avila P.A.-C. Primary Care Pro vider Source Comments Patient records contain information from all sites at [facility]. For routine questions regarding patient records, call [phone] during business hours, M-F 8:00 AM - 5:00 PM Central Time. Record requests for emergency care only can be directed to [phone] at any time.[facility] Allergies Active Allergy Reactions Criticality Noted Date Comments Cetirizine Hives (Reselect Reaction) Medium 10/27/2014 Medications * This document contains information received from the source organization and may not represent a complete record from that organization. colestipoL (COLESTID) 1 gram tablet TAKE 1 TABLET BY MOUTH TWICE A DAY 180 tablet 1 2 Active Revlimid 10 mg capsule Take 10 mg by mouth daily. 9 Active aspirin 81 mg capsule Take 81 mg by mouth daily. 2 Active magnesium gluconate (MAGONATE) 27.5 mg magne- sium (500 mg) tablet Take 500 mg by mouth daily. Active cholecalciferol (VITAMIN D3) 50 mcg (2,000 Unit) capsule Take 50 mcg by mouth daily. Active erythromycin with ethanoL (ErygeL) 2 % gel Apply 1 Application topically 2 (two) times a day. Apply to affected area twice daily. 60 g 4 Active acetaminophen (TylenoL) 500 mg capsule Take 500 mg by mouth. 2 Active loperamide (Imodium A-D) 2 mg capsule Take 2 mg by mouth. 2 Active Active Problems Problem Noted Date Diagnosed Date Gilbert's Syndrome 07/02/2024 Overview (07/02/2024): Reported history of Gilbert Syndrome. Fatty Liver 07/02/2024 Osteopenia 07/02/2024 Foot Drop Right 09/06/2019 Pain Low Back Unspecified 09/06/2019 Radiculopathy Lumbar 08/19/2019 Foot Drop Left 06/18/2019 Neuropathy Peripheral 04/06/2019 Complication Stem Cell Transplant 03/16/2019 Transplant Stem Cell 02/24/2019 Multiple Myeloma In Remission 10/23/2018 Encounters Date Type Department Care Team Description 11/05/2024 Clinical Communication Division of Hematology in [place], [place] [address] [place] [address] Yady Trinidad M.D. Dental form 09/16/2024 2:43 PM PLANNER CHIEF - 09/16/2024 11:59 PM PLANNER CHIEF Hospital Encounter Department of Radiology, [facility], in [place], [place] [address] [place] [address] Shelby Russell, MARCELO, C.N.P., M.S.N. Multiple Myeloma In Remission (HCC); Steatohepatitis Non Alcoholic Discharge Disposition: Home or Self Care 09/14/2024 Clinical Communication Department of General Surgery in [place], [place] [address] [place] [phone] Ivonne Conner M.D. Results 09/10/2024 Documentation Department of Radiology, [facility], in [place], [place] [address] [place] [address] Tolu Garza 09/01/2024 10:00 AM CDT Office Visit Department of Community Internal Medicine in [address] [phone] Abeby Avila MPAS, P.A.-C. Preanesthetic Medical Exam (Primary Dx); Dermatitis Perioral; Screening Examination Skin Cancer; Pap Smear Examination; Screening Lipid from Last 3 Months Immunizations Name Administration Dates Next Due DTaP (Infanrix, Tripedia) 02/29/2020,12/28/2019, 10/25/2019 HepA / HepB 10/25/2019 HepA Adult 04/25/2020 HepB Adult 04/25/2020,12/28/2019 Hib (PRP-OMP) (PedvaxHIB) 02/29/2020,12/28/2019 Hib (PRP-T) (ACTHIB, HIBERIX) 10/25/2019 IPV 12/28/2019,10/25/2019 Influenza TIV (IM) 10/14/2019 Influenza high dose QV(65 ye ars or older) (PF) 08/20/2021 Influenza, Injectable, Quadrivalent 10/24/2018 Influenza, Quadrivalent, Adj uvanted, Preservative Free 07/23/2023,08/07/2022,08/08/2020 MCV4 (Menveo) 12/28/2019,10/25/2019 PCV13 02/29/2020,12/28/2019,10/25/2019 PPSV23 04/25/2020 RZV (SHINGRIX) 04/25/2020,10/25/2019 Td (Adult), adsorbed 09/02/2017 influenza trivalent high dose (HD)(PF) 4 influenza vaccine quad (FLUZ ONE/FLUARIX) (6 months and older)(PF) 10/17/2008 Family History Medical History Relation Name Comments Prostate cancer Brother Capo Shi Skin cancer Brother Capo Shi Coronary artery disease Father arik shi Glioblastoma Father arik shi Hypertension Father arik shi Prostate cancer Father arik shi Arthritis Mother yesica sih Coronary artery disease Mother yesica shi Dementia Mother yesica shi Hypertension Sister Chantell Oscar Relation Name Status Comments Brother Capo Shi Father airk shi Mother yesica shi Sister Chantell Oscar Social History Tobacco Use Types Packs/Day Years Used Date Smoking Tobacco: Never Smokeless Tobacco: Never Tobacco Cessation:Counseling Given: Not Answered Alcohol Use Standard Drinks/Week Comments Yes 0 (1 standard drink = 0.6 oz pur e alcohol) only on special occasions [facility] Utilities Answer Date Recorded In the past 12 months has e electric, gas, oil, or water company threatened to shut off services in your home? No 07/13/2024 Humiliation, Afraid, Rape, and Kick questionnair e Answer Date Recorded Within the last year, have y ou been afraid of your partner or ex-partner? No 07/07/2023 Within the last year, have y ou been humiliated or emotionally abused in other ways by your partner or ex-partner? No Within the last year, have y ou been kicked, hit, slapped, or otherwise physically hurt by your partner or ex-partner? No 07/07/2023 Within the last year, have y ou been raped or forced to have any kind of sexual activity by your partner or ex-partner? No 07/07/2023 Social Connection and Isolat ion Panel [NHANES] Answer Date Recorded Frequency of Communication w ith Friends and Family More than three times a week 09/09/2019 Frequency of Social Gatherin gs with Friends and Family Three times a week 09/09/2019 Attends Baptism Services More than 4 times per year 09/09/2019 Active Member of Clubs or Organizations No 09/09/2019 Attends Club or Organization Meetings Never 09/09/2019 Marital Status 09/09/2019 AUDIT-C Answer Date Recorded Frequency of Alcohol Consumption 2-4 times a mon 09/09/2019 Average Number of Drinks 1 or 2 019 Frequency of Binge Drinking Never 08/12 Overall Financial Resource Strain (CARDIA) Answe r Date Recorded How hard is it for you to pa y for the very basics like food, housing, medical care, and heating? Not hard at all 07/07/2023 PHQ-2 Answer Date Recorded PHQ-2 Score 0 06/28/2024 [facility] [place] [facility] - Occupational Stress Questionnaire Answer Date Recorded Feeling of Stress Not at all 09/09/2019 Exercise Vital Sign Answer Date Recorde d On average, how many days pe r week do you engage in moderate to strenuous exercise (like a brisk walk)? 2 days 07/13/2024 On average, how many minutes do you engage in exercise at this level? 30 min 07/13/2024 Hunger Vital Sign Answer Date Recorded Within the past 12 months, y ou worried that your food would run out before you got the money to buy more. Never true 07/13/20 Within the past 12 months, t he food you bought just didn't last and you didn't have money to get more. Never true 07/13/2024 PRAPARE - Transportation Answer Date Re corded In the past 12 months, has l ack of transportation kept you from medical appointments or from getting medications? No 01/2024 In the past 12 months, has l ack of transportation kept you from meetings, work, or from getting things needed for daily living? No 07/13/2024 Nutrition Answer Date Recorded On average, how many serving s of fruits and vegetables do you eat per day (serving size is equal to 1 cup or approximately the size of a tennis ball)? 3-5 07/13/2024 Dental Answer Date Recorded Dental: Regular Dentist Yes 07/07/20 Employment Answer Date Recorded Employment status Retired 07/13/2024 Housing Stability Answer Date Recorded What is your living situation today? I have a [facility] place to live 07/13/2024 Education Answer Date Recorded What is the highest level of school you have completed or the highest degree you have received? Associate degree: academic program 09/09/2019 Comments No Sex and Gender Information Value Date Recorded Sex Assigned at Female 10/28/2018 9:42 AM PLANNER CHIEF Legal Sex Female 8:45 AM PLANNER CHIEF Gender Identity Female 10/28/2018 9:42 AM PLANNER CHIEF Sexual Orientation Straight 10/28/2018 9: 42 AM PLANNER CHIEF Last Filed Vital Signs Vital Sign Reading Time Taken Comments Blood Pressure 137/84 09/01/2024 10:04 AM CDT Pulse 69 09/01/2024 10:04 AM CDT Temperature 35.8 C (96.4 F) 09/01/2024 10:04 AM CDT Respiratory Rate 16 09/01/2024 10:0 4 AM CDT Oxygen Saturation 97% 09/01/2024 10: 04 AM CDT Inhaled Oxygen Concentration - - Weight 79.7 kg (175 lb 11.3 oz) 024 10:04 AM CDT Height 161 cm (5' 3.39) 09/01/2024 10: 04 AM CDT Body Mass Index 30.75 09/01/2024 10:04 AM CDT Plan of Treatment Upcoming Encounters Date Type Department Care Team (Latest Contact Info) Description 12/15/2024 4:30 PM PLANNER CHIEF Clinical Communication Virtual Review in [place], [place] [address] [place] [address] 12/17/2024 1:50 PM PLANNER CHIEF Comprehensive Visit Division of Gastroenterology in [place], [place] [address] [place] [address] Shelby Russell APRN, C.N.P., M.S.N. [address] [place] [address] 12/28/2024 3:30 PM PLANNER CHIEF Comprehensive Visit Department of Family Medicine, [facility], in [place], [place] [address] [place] [phone] Cleopatra Morton APRN, C.N.P. [address], [place] [phone] Health Maintenance Due Date Last Done Comments CT Colonography 1955 Cologuard 1955 Visit: Medicare Annual Wellness 1955 COVID-19 Vaccine (2023-12 5 season) 2024 08/07/2022, 02/19/2022, 07/13/2021, Additional history exists Depression Screening (Annual PHQ-2) 11/10/2024 Fall Risk Screen (Annual) 11/10/2024 Mammogram 07/29/2025 07/29/2024, 08/11, 09/04/2022, Additional history exists Visit: Annual, age 65+ (or Medicare and <65) 09/01/2025 09/01/2024, 07/02/2024 Fasting Glucose for Diabetes Screening 07/29/2027 07/29/2024, 07/15/2024, 06/09/2024, Additional history exists Colonoscopy 09/08/2029 09/08/2024, 1103/2019, 09/14/2019 Colorectal Cancer Surveillance 09/08/2029 Bone Density Scan Monitoring Discontinued 05/30/2021, 05/30/2021 Influenza Vaccine Completed 08/01/2024, , 08/07/2022, Additional history exists Cervical/Vaginal Cancer Screening Discontinued 024, 09/01/2024 Procedures Procedure Name Priority Date/Time Associated Diagnosis Comments EXTM HOME SARS CORONAVIRUS-2 (COVID-19) ANTIGEN, V Routine 09/20/2024 MR LIVER ELASTOGRAM ONLY WITHOUT IV CONTRAST RAD - Routine (most inpatients and all outpatients) 09/16/2024 4:24 PM PLANNER CHIEF Multiple Myeloma In Remission (HCC) Steatohepatitis Non Alcoholic OUTSIDE PHOTO Routine 09/08/2024 12:00 AM CDT THINPREP W/HPV CO-TEST DIAGNOSTIC Routine 09/01/2024 10:44 AM CDT Pap Smear Examination HPV WITH GENOTYPING, PCR, THINPREP Routine 09/01/2024 10:44 AM CDT BI BREAST SCREENING BILATERAL WITH TOMOSYNTHESIS RAD - Routine (most inpatients and all outpatients) 07/29/2024 11:05 AM CDT Maintenance Health Adult GLUCOSE, FASTING, S/P Routine 07/29/2024 9:38 AM CDT Screening Examination Diabetes Mellitus from Last 3 Months or Most Recently Relevant to Health Maintenance Results * (ABNORMAL) EXT Home SARS Coronavirus-2 (COVID-19) Antigen (09/20/2024) EXT Home SARS-CoV-2 Antigen Presumptive Positive(A) Presumptive Negative HOME RESULTS Swab 09/20/2024 us Historical Provider LAB MICROBIOLOGY - GENERAL O RDERABLES Final Result HOME RESULTS * MR Liver Elastogram Only without IV Contrast (09/16/2024 4:24 PM PLANNER CHIEF) Anatomical Region Laterality Modality Abdomen, Abdominal RST LOS, Abdominal ARZ LOS, Abdominal FLA LOS N/A Magnetic Resonance Impressions 09/17/2024 7:24 AM PLANNER CHIEF 1. Mean liver stiffness of 2.0kPa. This is consistent with normal findings 2. Hepatic steatosis: Mean PDFF of 13%. 3. Normal liver iron content: Mean LIC of 0.9 mgFe/g The liver MRE only protocol (or Hepatogram protocol) is a limited MRI protocol designed to quantitatively assess liver fat and fibrosis. The imaging techniques used in this protocol are not suitable for detection or characterization of focal liver lesions and evaluation of lesions in other organs. Narrative 09/17/2024 7:24 AM PLANNER CHIEF EXAM: MR LIVER ELASTOGRAM ONLY WITHOUT IV CONTRAST 3D maximum intensity projections/volume renderings were created on an independent workstation with or without AI assistance as ordered by the treating provider and reviewed by the radiologist for determination of hepatic parenchymal stiffness. COMPARISON: CT 10/05/2018. FINDINGS: Liver Fat Estimation: In teleservices representative areas of the liver, the mean proton density fat-fraction (PDFF) is 13% Histological steatosis categories by PDFF: <5% = Normal greater than or equal to5% = Hepatic steatosis Liver Iron Concentration: In teleservices representative areas of the liver, the mean liver iron concentration (LIC) is 0.9mg Fe/g of liver Iron overload severity grades by LIC: <1.8 mg/g = Normal 1.8 - 3.2 mg/g = Borderline >3.2 mg/g = Elevated MR Elastography: Mean liver stiffness: 2.0kPa (range 1.8 - 2.0kPa). Interpretation of MR elastography results: <2.5 kPa = Normal 2.5 - 3.0 kPa = Normal or inflammation Increased liver stiffness, in the appropriate clinical setting, is compatible with liver fibrosis as below: 3.0 - 3.5 kPA = Stage 1-2 fibrosis 3.5 - 4.0 kPa = Stage 2-3 fibrosis 4.0 - 5.0 kPa = Stage 3-4 fibrosis >5.0 kPa = Stage 4 fibrosis or cirrhosis Post-processed images were reviewed and approved. Procedure Note Matthew Ramos M.D. - 09/17/2024 EXAM: MR LIVER ELASTOGRAM ONLY WITHOUT IV CONTRAST 3D maximum intensity projections/volume renderings were created on anindependent workstation with or without AI assistance as ordered by thetreating provider and reviewed by the radiologist for determination ofhepatic parenchymal stiffness. COMPARISON: CT 10/05/2018. FINDINGS: Liver Fat Estimation: In teleservices representative areas of the liver, the mean proton density fat-fraction(PDFF) is 13% Histological steatosis categories by PDFF: <5% = Normal greater than or equal to5% = Hepatic steatosis Liver Iron Concentration: In teleservices representative areas of the liver, the mean liver iron concentration(LIC) is 0.9mg Fe/g of liver Iron overload severity grades by LIC: <1.8 mg/g = Normal 1.8 - 3.2 mg/g = Borderline >3.2 mg/g = Elevated MR Elastography: Mean liver stiffness: 2.0kPa (range 1.8 - 2.0kPa). Interpretation of MR elastography results: <2.5 kPa = Normal 2.5 - 3.0 kPa = Normal or inflammation Increased liver stiffness, in the appropriate clinical setting, iscompatible with liver fibrosis as below: 3.0 - 3.5 kPA = Stage 1-2 fibrosis 3.5 - 4.0 kPa = Stage 2-3 fibrosis 4.0 - 5.0 kPa = Stage 3-4 fibrosis >5.0 kPa = Stage 4 fibrosis or cirrhosis Post-processed images were reviewed and approved. IMPRESSION: 1. Mean liver stiffness of 2.0kPa. This is consistent with normalfindings 2. Hepatic steatosis: Mean PDFF of 13%. 3. Normal liver iron content: Mean LIC of 0.9 mgFe/g The liver MRE only protocol (or Hepatogram protocol) is a limited MRIprotocol designed to quantitatively assess liver fat and fibrosis. Theimaging techniques used in this protocol are not suitable for detection orcharacterization of focal liver lesions and evaluation of lesions in other organs. us Shelby Russell APRN, C.N.P., M.S.N. IMG MRI P ROCEDURES Final Result * Colon-Outside Photo (09/08/2024 12:00 AM CDT) Narrative [facility] - 09/20/2024 8:25 AM PLANNER CHIEF This order has been created and auto-finalized to support the import of outside images. If available, original interpretation can be found on the Media Tab in Chart Review, in Document Viewer, as an image in QREADS or as an Addendum. If a re-interpretation or overread is required please follow defined workflow. us Provider Not In System IMG NON RAD IMAGING PROCE DURES Final Result [facility] NA * ThinPrep w/HPV Co-Test Diagnostic (09/01/2024 10:44 AM CDT) 09/06/2024 10:10 AM CDT [facility] Report electronically signed by SIMA Roger(ASCP) I verify that I have examined all relevant slides/materials for the specimen(s) and rendered or confirmed the diagnosis. 09/06/2024 10:10 AM CDT [facility] Gross Description Received specimen in a ThinPrep vial. 09/06/2024 10:10 AM CDT [facility] Pap Test Source Cervical/Endocervi mckenzie 09/06/2024 10:10 AM CDT [facility] Hormone Therapy/Contracep tives None/Not known 09/06/2024 10:10 AM CDT [facility] Interpretation Cervical/Endocervi mckenzie (ThinPrep): Satisfactory for Evaluation Endocervical/trans formation zone component cannot be assessed due to atrophy. Negative for Intraepithelial Lesion or Malignancy High Risk HPV: Negative Negative for High Risk HPV by nucleic acid amplification. The following High Risk HPV types were not detected: 16, 18, 31, 33, 35, 39, 45, 51, 52, 56, 58, 59, 66, and 68. 09/06/2024 10:10 AM CDT [facility] Thin Prep Vial (Cervix/Endocerv ix) 09/01/2024 10:44 AM CDT 09/02/2024 7:34 AM CDT Abbey Avila MPAS, P.A.-C. LAB PAP PATHDX OR DERABLES Final Result [facility] [address] [place] [address], [facility] [address] [address] * HPV with Genotyping, PCR, ThinPrep (09/01/2024 10:44 AM CDT) HPV with Genotyping, ThinPrep, PCR Negative Negative 09/02/2024 2:40 PM CDT [facility] Comment: Negative for high risk HPV by nucleic acid amplification. The following high risk HPV types were not detected: 16, 18, 31, 33, 35, 39, 45, 51, 52, 56, 58, 59, 66, and 68 This result does not rule out HPV in the patient, as the sensitivity of the test depends on the timing of the specimen collection and the quality of the specimen. Result should be correlated with patient's history, clinical presentation, and INVASIVE PHYSICIAN cytology report. 09/01/2024 10:4 4 AM CDT 09/02/2024 7:34 AM CDT us Isac CidA.-C. LAB MICROBIOLOGY - GENERAL ORDERABLES Final Result [facility] [address] [place] [address], [facility] [address] [address] * BI Breast Screening Bilateral with Tomosynthesis (07/29/2024 11:05 AM CDT) Anatomical Region Laterality Modality Breast, Breast Imaging RST L OS, Breast Imaging ARZ LOS, Breast Imaging FLA LOS Bilateral Mammography Impressions 07/29/2024 11:23 AM CDT Negative. RECOMMENDATION: Annual Screening Mammogram ASSESSMENT: BI-RADS: 1: Negative. Narrative 07/29/2024 11:23 AM CDT EXAM: BI BREAST SCREENING BILATERAL WITH TOMOSYNTHESIS Current study was evaluated with a Computer Aided Detection (CAD) system. INDICATION: Screening mammogram. COMPARISON: Prior exam(s) were available and reviewed for comparison. DENSITY: b. There are scattered areas of fibroglandular density. FINDINGS: No mammographic findings of malignancy. Procedure Note Jm Mair M.D. - 07/29/2024 EXAM: BI BREAST SCREENING BILATERAL WITH TOMOSYNTHESIS Current study was evaluated with a Computer Aided Detection (CAD) system. INDICATION: Screening mammogram. COMPARISON: Prior exam(s) were available and reviewed for comparison. DENSITY: b. There are scattered areas of fibroglandular density. FINDINGS: No mammographic findings of malignancy. IMPRESSION: Negative. RECOMMENDATION: Annual Screening Mammogram ASSESSMENT: BI-RADS: 1: Negative. Abbey SESAY, P.A.-C. IMG BI PROCEDURES Final Result * Glucose, Fasting (07/29/2024 9:38 AM CDT) Glucose, P 84 70 - 100 mg/dL 07/29/2024 1:29 PM CDT OWAT Last Intake 19 hr 07/29/2024 12:46 PM CDT OWAT Blood (Blood, Venous) 07/29/2024 9:38 AM CDT 07/29/2024 12:44 PM CDT Abbey SESAY, P.A.-C. 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 Advance Directives 02/22/2019 8:47 AM POA for health care * Full Code (Latest Code Status on File) Date Activated Date Inactivated Comments 03/16/2019 5:46 PM 03/22/2019 4:11 PM Question Answer Comments Full Code: Discussed * Full Code Date Activated Date Inactivated Comments 03/16/2019 5:07 PM 03/16/2019 5:46 PM Question Answer Comments Full Code: Discussed Healthcare Agents on File Name Relationship Healthcare Agent Relationship Communication Josef Matias Spouse Health Care Agent [email or web address] Anastasiya Almeida Daughter First Alternate Health Care Agent Care Teams Patient Case Coordinator Relationship Specialty Start Date End Date Abbey Avila MPAS, P.A.-C. [address] [place] [address] [place] [phone] PCP - General Internal Medicine 06/10/24
--- OUTSIDE RECORDS SUMMARY | 2024-11-11 07:06 | XMS_ITS ---
Author Organization [facility] Address [address] [place] [address] Care Team Providers Care Cover Operator Name Role Phone Unavailable Unavailable Unavailable Surgery Details Not on file Complications Check Surgery Details section. Procedure Estimated Blood Loss Check Surgery Details section. Procedure Findings Check Surgery Details section. Procedure Specimens Taken Check Surgery Details section.
--- OUTSIDE RECORDS SUMMARY | 2024-11-11 07:06 | XMS_ITS | Referral Summary ---
Author Organization [facility] Address [address] [place] [address] Care Team Providers Care Technical Services Manager Name Role Phone Abbey Avila P.A.-C. Primary Care Pro vider Source Comments Patient records contain information from all sites at [facility]. For routine questions regarding patient records, call [phone] during business hours, M-F 8:00 AM - 5:00 PM Central Time. Record requests for emergency care only can be directed to [phone] at any time.[facility] Encounters Date Type Department Care Team Description 11/05/2024 Clinical Communication Division of Hematology in [place], [place] [address] [place] [address] Yady Trinidad M.D. Dental form 09/16/2024 2:43 PM TEACHER ADVISOR - 09/16/2024 11:59 PM TEACHER ADVISOR Hospital Encounter Department of Radiology, [facility], in [place], [place] [address] [place] [address] Shelby Russell APRN, C.N.P., M.S.N. Multiple Myeloma In Remission (HCC); Steatohepatitis Non Alcoholic Discharge Disposition: Home or Self Care 09/14/2024 Clinical Communication Department of General Surgery in [place], [place] [address] [place] [address] Ivonne Conner M.D. Results 09/10/2024 Documentation Department of Radiology, [facility], in [place], [place] [address] [place] [address] Tolu Garza 09/01/2024 10:00 AM CDT Office Visit Department of Community Internal Medicine in [place], [place] [address] [place] [address] Abbey Avila MPAS, P.A.-C. Preanesthetic Medical Exam (Primary Dx); Dermatitis Perioral; Screening Examination Skin Cancer; Pap Smear Examination; Screening Lipid from Last 3 Months Allergies Active Allergy Reactions Criticality Noted Date [...] Cell 02/24/2019 Multiple Myeloma In Remission 10/23/2018 Immunizations Name Administration Dates Next Due DTaP [...] (FLUZ ONE/FLUARIX) (6 months and older)(PF) 10/17/2008 Social History Tobacco Use Types Packs/Day Years Used Date Smoking Tobacco: Never Smokeless Tobacco: Never Tobacco Cessation:Counseling Given: Not Answered Alcohol Use Standard Drinks/Week Comments Yes 0 (1 standard drink = 0.6 oz pur e alcohol) only on special occasions [facility] Utilities Answer Date Recorded In the past 12 months has e [employer], [employer], oil, or water Liiiike threatened to shut off services in your [...] Family Three times a week 09/09/2019 Attends Anabaptism Services More than 4 times per year 09/09/2019 Active Member of Clubs or Organizations No 09/09/2019 Attends Club or Organization Meetings Never 09/09/2019 Marital Status 09/09/2019 AUDIT-C Answer Date Recorded Frequency of Alcohol Consumption 2-4 times a fri09/09/2019 Average Number of Drinks 1 or 2 019 Frequency of Binge Drinking Never 08/12 Overall Financial Resource Strain (CARDIA) Answe r Date Recorded How hard is it for you to pa y for the very basics like food, housing, medical care, and heating? Not hard at all 07/07/2023 PHQ-2 Answer Date Recorded PHQ-2 Score 0 06/28/2024 [facility] - Occupational Stress Questionnaire Answer [...] money to buy more. Never true 07/13/20 24 Within the past 12 months, t he [...] your living situation today? I have a [facility] place to live 07/13/2024 Education Answer Date Recorded What is the highest level of school you have completed or the highest degree you have received? Associate degree: academic program 09/09/2019 Comments No Sex and Gender Information Value Date Recorded Sex Assigned at Female 10/28/2018 9:42 AM TEACHER ADVISOR Legal Sex Female 8:45 AM TEACHER ADVISOR Gender Identity Female 10/28/2018 9:42 AM TEACHER ADVISOR Sexual Orientation Straight 10/28/2018 9: 42 AM TEACHER ADVISOR Last Filed Vital Signs Vital Sign Reading [...] (Latest Contact Info) Description 12/15/2024 4:30 PM TEACHER ADVISOR Clinical Communication Virtual Review in [place], [place] [address] [place] [address] 12/17/2024 1:50 PM TEACHER ADVISOR Comprehensive Visit Division of Gastroenterology in [place], [place] [address] [place] [address] Shelby Russell APRN, C.N.P., M.S.N. [address] [place] [address] 12/28/2024 3:30 PM TEACHER ADVISOR Comprehensive Visit Department of [facility], [facility], in [place], [place] [address] [place] [address] Cleopatra Morton APRN, C.N.P. [address] [place] [address] Procedures Procedure Name Priority Date/Time Associated Diagnosis Comments EXTM HOME SARS CORONAVIRUS-2 (COVID-19) ANTIGEN, V Routine 09/20/2024 MR LIVER ELASTOGRAM ONLY WITHOUT IV CONTRAST RAD - Routine (most inpatients and all outpatients) 09/16/2024 4:24 PM TEACHER ADVISOR Multiple Myeloma In Remission (HCC) Steatohepatitis Non [...] Only without IV Contrast (09/16/2024 4:24 PM TEACHER ADVISOR) Anatomical Region Laterality Modality Abdomen, Abdominal RST LOS, Abdominal ARZ LOS, Abdominal FLA LOS N/A Magnetic Resonance Impressions 09/17/2024 7:24 AM TEACHER ADVISOR 1. Mean liver stiffness of 2.0kPa. This [...] in other organs. Narrative 09/17/2024 7:24 AM TEACHER ADVISOR EXAM: MR LIVER ELASTOGRAM ONLY WITHOUT IV CONTRAST 3D maximum intensity projections/volume renderings were created on an independent workstation with or without AI assistance as ordered by the treating provider and reviewed by the radiologist for determination of hepatic parenchymal stiffness. COMPARISON: CT 10/05/2018. FINDINGS: Liver Fat Estimation: In patient services representative areas of the liver, the mean proton density fat-fraction (PDFF) is 13% Histological steatosis categories by PDFF: <5% = Normal greater than or equal to5% = Hepatic steatosis Liver Iron Concentration: In patient services representative areas of the liver, the mean [...] maximum intensity projections/volume renderings were created on an[employer] workstation with or without AI assistance as ordered by thetreating provider and reviewed by the radiologist for determination ofhepatic parenchymal stiffness. COMPARISON: CT 10/05/2018. FINDINGS: Liver Fat Estimation: In patient services representative areas of the liver, the mean proton density fat-fraction(PDFF) is 13% Histological steatosis categories by PDFF: <5% = Normal greater than or equal to5% = Hepatic steatosis Liver Iron Concentration: In patient services representative areas of the liver, the mean [...] evaluation of lesions in other organs. us Mark Vanegas APRNNMariusz., M.S.N. IMG MRI P ROCEDURES Final Result * Colon-Outside Photo (09/08/2024 12:00 AM CDT) Narrative IIND - 09/20/2024 8:25 AM TEACHER ADVISOR This order has been created and auto-finalized [...] NON RAD IMAGING PROCE DURES Final Result [facility] NA * ThinPrep w/HPV Co-Test Diagnostic (09/01/2024 [...] AM CDT 09/02/2024 7:34 AM CDT Abbey SESAY, P.A.-C. LAB PAP PATHDX OR DERABLES Final Result Performing Organization Address City/[facility]/ZIP Co de Phone Number [facility] [address] [place] [address], [facility] [address] [address] * HPV with Genotyping, PCR, ThinPrep (09/01/2024 10:44 AM CDT) Pathologist [facility] HPV with Genotyping, ThinPrep, PCR Negative Negative [...] correlated with patient's history, clinical presentation, and IRRIGATION SUPERVISOR cytology report. 09/01/2024 10:4 4 AM CDT 09/02/2024 7:34 AM CDT Abbey SESAY, P.A.-C. LAB MICROBIOLOGY - GENERAL ORDERABLES Final Result Performing Organization Address City/[facility]/ZIP Co de Phone Number [facility] [address] [place] [address], [facility] [address] [address] * BI Breast Screening Bilateral with Tomosynthesis [...] mammographic findings of malignancy. Procedure Note Jm Mari M.D. - 07/29/2024 EXAM: BI BREAST SCREENING [...] LAB BLOOD NON ADD -ON Final Result [facility] [address] [place] [address], [place] [facility] in [place] [address] [place] [address] from Last 3 Months or Most Recently Relevant to Health Maintenance Additional Health Concerns Infection Onset Date Last Indicated Protective Environment 07/09/2023 3 Insurance MEDICARE [facility] Advance Directives For more information, please contact: [phone] Documents on File Type Date Recorded Patient Hydro Technician Expl anation Advance Directives 02/22/2019 8:47 AM [...] Communication Josef Matias Spouse Health Care Agent [email or web address] Anastasiya Almeida Daughter First Alternate Health Care Agent Care Teams Technical Services Manager Relationship Specialty Start Date End Date Abbey Avila MPAS, P.A.-C. [address] [facility] [place] [phone] PCP - General Internal Medicine 06/10/24
--- OUTSIDE RECORDS SUMMARY | 2024-11-11 07:06 | XMS_ITS | Encounter Summary ---
Author Organization [facility] Address [address] [place] [address] Care Team Providers Care Shiatsu Therapist Name Role Phone Abbey Avila P.A.-C. Primary Care Pro vider Reason for Visit * Reason Onset Date Comments Dental form 11/05/2024 Encounter Details Date Type Department Care Team (Late st Contact Info) Description 11/05/2024 Clinical Communication Division of Hematology in [place], [place] [address] [place] [phone] Yady Trinidad M.D. [address] [place] [phone] Dental form Social History Tobacco Use Types Packs/Day Years Used Date Smoking Tobacco: Never Smokeless Tobacco: Never Alcohol Use Standard Drinks/Week Comments Yes 0 (1 standard drink = 0.6 oz pur e alcohol) only on special occasions [facility] Utilities Answer Date Recorded In the past 12 months has [employer], gas, oil, or water Locately threatened to shut off services in your [...] Family Three times a week 09/09/2019 Attends Mormonism Services More than 4 times per year [...] Answer Date Recorded PHQ-2 Score 0 06/28/2024 [facility] - Occupational Stress [...] your living situation today? I have a [facility] place to live 07/13/2024 Education Answer Date Recorded What is the highest level of school you have completed or the highest degree you have received? Associate degree: academic program 09/09/2019 Comments No Sex and Gender Information Value Date Recorded Sex Assigned at Female 10/28/2018 9:42 AM RADIOTELEPHONE TECHNICAL OPERATOR Legal Sex Female 8:45 AM RADIOTELEPHONE TECHNICAL OPERATOR Gender Identity Female 10/28/2018 9:42 AM RADIOTELEPHONE TECHNICAL OPERATOR Sexual Orientation Straight 10/28/2018 9: 42 AM RADIOTELEPHONE TECHNICAL OPERATOR documented as of this encounter Miscellaneous Notes * Telephone Encounter - Opal Lyon R.N. - 11/09/2024 1:50 PM RADIOTELEPHONE TECHNICAL OPERATOR Dental form has been given to Dr. Trinidad to complete and sign. OTELEPHONE TECHNICAL OPERATOR documented in this encounter Plan of Treatment Upcoming Encounters Date Type Department Care Team (Latest Contact Info) Description 12/15/2024 4:30 PM RADIOTELEPHONE TECHNICAL OPERATOR Clinical Communication Virtual Review in [place], [place] [address] [place] [address] 12/17/2024 1:50 PM RADIOTELEPHONE TECHNICAL OPERATOR Comprehensive Visit Division of Gastroenterology in [place], [place] [address] [place] [phone] Shelby Russell, MARCELO, C.N.P., M.S.N. [address] [place] [phone] 12/28/2024 3:30 PM RADIOTELEPHONE TECHNICAL OPERATOR Comprehensive Visit Department of Family Medicine, [facility], in [place], [place] [address] [place] [phone] Cleopatra Morton APRN, C.N.P. [address] [place] [address] documented as of this encounter Visit Diagnoses Not on filedocumented in this encounter Additional Health Concerns Infection Onset Date Last Indicated Resolved Time Protective Environment 07/09/2023 07/09/2023 Assessment Noted Time PHQ-9 Depression Total Score: 1 02/01/20 19 9:04 AM CDT documented as of this encounter Care Teams Shiatsu Therapist Relationship Specialty Start Date End Date Abbey Avila MPAS, P.A.-C. [address] [place] [address] [place] [phone] PCP - General Internal Medicine 06/10/24 documented as of this encounter
--- OUTSIDE RECORDS SUMMARY | 2024-11-11 07:06 | XMS_ITS ---
Author Organization [facility] Address [address] [place] [address] Care Team Providers Care Director [employer] System Name Role Phone Abbey Avila P.A.-C. Primary Care Pro vider Active Problems * This document contains information received from the source organization and may not represent a complete record from that organization. Problem Noted Date Diagnosed Date Gilbert's Syndrome 07/02/2024 Overview (07/02/2024): Reported history of Gilbert Syndrome. Fatty Liver 07/02/2024 Osteopenia 07/02/2024 Foot Drop Right 09/06/2019 Pain Low Back Unspecified 09/06/2019 Radiculopathy Lumbar 08/19/2019 Foot Drop Left 06/18/2019 Neuropathy Peripheral 04/06/2019 Complication Stem Cell Transplant 03/16/2019 Transplant Stem Cell 02/24/2019 Multiple Myeloma In Remission 10/23/2018 Current Oncology Plans No current plan information found. Past Plans Apheresis Plan Name Start Date Discontinue Date Treatment Medications Discontinue Reason Plan Provider AUTOLOGOUS CELL COLLECTION 03/02/2019 03/04/2019 No medications scheduled. Therapy Complete Jesús Lynn M.D. Conditional Blood Orders RBC Plan Name Start Date Discontinue Date Treatment Medications Discontinue Reason Plan Provider *CONDITIONAL BLOOD ADMINISTRATION - PLATELETS - FOR PATIENTS WEIGHING GREATER THAN 35 KG - (UNITS) HEM ONC / BMT ONL... 03/07/2019 08/26/2019 No medications scheduled. Therapy Complete Kirsty Cervantes APRN, C.N.P., D.N.P. Hem/Onc Therapy Plan 1 Plan Name Start Date Discontinue Date Treatment Medications Discontinue Reason Plan Provider PERIPHERAL BLOOD STEM CELL MOBILIZATION 02/26/2019 03/04/2019 No medications scheduled. Therapy Complete Yady Trinidad M.D. Hematology / Oncology Treatment 1 Plan Name Start Date Discontinue Date Treatment Medications Discontinue Reason Plan Provider Cycles Melphalan Single Day ( Day -2 ) Myeloablative Conditioning 9 06/14/2019 melphalan (Alkeran) IVPB in 1000 mL (QS base) (Alkeran) Therapy Complete Lance Decker, P.A.-C. 1 of 1 cycle started RVD Weekly 21-Day ( Lenalidomide / Bortezomib / Dexamethasone ) 11/09/20 18 03/04/2019 bortezomib (Velcade)stu lidomide (Revlimid) Therapy Complete Luca Carrion M.D. Treatment not started Infusion Therapy 1 Plan Name Start Date Discontinue Date Treatment Medications Discontinue Reason Plan Provider AUTOLOGOUS BLOOD AND MARROW TRANSPLANT 03/16/2019 09/02/2019 No medications scheduled. Upgrade 2019 Therapy Plan Conversion Kirsty Cervantes APRN, C.N.P., D.N.P. Radiation Treatments * Plan Last Treated On Elapsed Days Fractions Treated Prescribed Fraction Dose Prescribed Total Dose F1 Sternum 11/04/2018 2 1 of 1 800 cGy 800 cGy F1 LtClavScap 11/02/2018 0 1 of 1 800 cGy 800 c Gy Reference Point Last Treated On Elapsed Days Session Dose Total Dose [id number] Hayes 11/04/2018 2 800 cGy 800 cGy [id number] clavscap 11/02/2018 0 800 cGy 800 cGy Cellular Therapy * Episode Name Episode Status Transplant/Infusion Date Transplant/Infusion Center Donor Information Acute GVHD Chronic GVHD Contact Auto PBSC Txp Resolved Day 5y 8m (03/09/19) [facility] N/A N/A N/A No contact on file * Cell Therapy Appointments (10/11/2024 - 12/12/2024) When Visit Type With Description No appointments Lifetime Dose Tracking * Chemical Lifetime Dose Automatic Entry Manual Entr y Radiation 144 mGy 144 mGy 0 mGy Fluoro Time 3.6 minutes 3.6 minutes 0 minutes
[2024-11-11 09:55] LABS: Albumin* 4.1 g/dL (3.3-5.0)
[2024-11-11 09:58] LABS: Alkaline Phosphatase* 62 U/L (40-150); Aspartate Amino Transferase* 20 U/L (12-35); Bilirubin Direct* 0.2 mg/dL (0.0-0.5); Bilirubin Total* 2.3 mg/dL (0.1-1.5); Total Protein* 6.8 g/dL (6.0-8.3)
[2024-11-11 09:59] LABS: Alanine Aminotransferase* 15 U/L (4-35)
--- NOTE | 2024-11-11 10:54 | ONC.NURNOTE ---
bili results called to Vanessa- unchanged she has 1 more week of lenalidomide until her week off no changes planned for Dr Dooley to review when she returns 11/15/24
[2024-11-24 11:59] LABS: Basophils Percent Auto 1.4 % (0.0-3.0); Eosinophils Percent Auto 2.6 % (0.0-7.0); Hematocrit* 37.9 % (33.0-51.0); Hemoglobin* 12.7 gm/dL (12.0-16.0); Lymphocytes Percent Auto 36.2 % (20-44); Mean Corpuscular HGB Conc 34 gm/dL (32-36); Mean Corpuscular Hemoglobin 30 pg (26-34); Mean Corpuscular Volume 89 fL (80-100); Monocytes Percent Auto 12.9 % (0.0-11.0); Neutrophils Percent Auto 46.9 % (42.0-72.0); Platelet Count* 185 K/uL (140-440); RDW Coefficient of Variation % 15.1 % (11.5-15.5); Red Blood Count* 4.28 m/uL (4.00-5.20)
[2024-11-24 12:02] LABS: Slide Review Reflex No
[2024-11-24 12:16] LABS: Albumin* 4.3 g/dL (3.3-5.0)
[2024-11-24 12:17] LABS: Chloride* 106 mmol/L (96-114); Potassium* 3.9 mmol/L (3.6-5.1); Sodium* 137 mmol/L (135-149)
[2024-11-24 12:19] LABS: Anion Gap 8 mEq/L (7-15); Aspartate Amino Transferase* 21 U/L (12-35); Bilirubin Total* 2.2 mg/dL (0.1-1.5); Carbon Dioxide* 23 mmol/L (20-32); Creatinine* 0.7 mg/dL (0.5-1.5); Est. Creatinine Clearance* 43.92; Estimated Glomerular Filt Rate 94 ml/min
[2024-11-24 12:20] LABS: Alanine Aminotransferase* 17 U/L (4-35); Alkaline Phosphatase* 54 U/L (40-150); Blood Urea Nitrogen* 11 mg/dL (7-30); Glucose* 104 mg/dL (60-115)
--- NOTE | 2024-11-25 10:27 | ONC.NURNOTE ---
Labs noted, bili noted by Dr Dooley- deborah to start lenalidomide patient has appt with filter helper next month reviewed importance to call with illness, Dr Dooley has been holding lenalidomide with positive flu/COVID
[2024-12-22 10:03] LABS: Basophils Percent Auto 1.3 % (0.0-3.0); Eosinophils Percent Auto 3.1 % (0.0-7.0); Hematocrit* 39.4 % (33.0-51.0); Immature Granulocytes Pct Auto 0.3 %; Lymphocytes Percent Auto 32.9 % (20-44); Mean Corpuscular HGB Conc 33 gm/dL (32-36); Mean Corpuscular Hemoglobin 30 pg (26-34); Mean Corpuscular Volume 90 fL (80-100); Monocytes Percent Auto 10.4 % (0.0-11.0); Platelet Count* 168 K/uL (140-440); RDW Coefficient of Variation % 14.8 % (11.5-15.5); Red Blood Count* 4.37 m/uL (4.00-5.20); Slide Review Reflex No; White Blood Count* 3.86 K/uL (4.50-11.00)
[2024-12-22 10:17] LABS: Albumin* 4.3 g/dL (3.3-5.0); Chloride* 106 mmol/L (96-114); Potassium* 4.3 mmol/L (3.6-5.1); Sodium* 139 mmol/L (135-149)
[2024-12-22 10:19] LABS: Creatinine* 0.7 mg/dL (0.5-1.5); Est. Creatinine Clearance* 43.92; Estimated Glomerular Filt Rate 94 ml/min
[2024-12-22 10:20] LABS: Alanine Aminotransferase* 16 U/L (4-35); Alkaline Phosphatase* 53 U/L (40-150); Anion Gap 10 mEq/L (7-15); Aspartate Amino Transferase* 21 U/L (12-35); Bilirubin Total* 1.9 mg/dL (0.1-1.5); Blood Urea Nitrogen* 14 mg/dL (7-30); Carbon Dioxide* 23 mmol/L (20-32); Glucose* 125 mg/dL (60-115); Total Protein* 6.9 g/dL (6.0-8.3)
[2024-12-22 10:21] LABS: Calcium* 8.7 mg/dL (8.4-10.6)
[2024-12-22 11:22] LABS: Cholesterol* 208 mg/dL (90-199); Triglycerides* 108 mg/dL (40-149)
[2024-12-22 11:35] LABS: HDL Cholesterol* 132 mg/dL (>=50); LDL Cholesterol Calculated 54 mg/dL (<100)
[2024-12-24 22:25] LABS: Albumin 4.07 g/dL (3.75-5.01); Alpha 1 Globulin 0.27 g/dL (0.19-0.46); Alpha 2 Globulin 0.56 g/dL (0.48-1.05); Immunofixation IFE Done; Immunoglobulin A 202 mg/dL (68-408); Immunoglobulin G 1046 mg/dL (768-1632); Immunoglobulin M 49 mg/dL (35-263); Kappa Qnt Free Light Chains 27.72 mg/L (3.30-19.40); Kappa/Lambda Light Chain Ratio 0.91 (0.26-1.65); Lambda Qnt Free Light Chains 30.39 mg/L (5.71-26.30); Total Protein, Serum 6.7 g/dL (6.3-8.2)
[2025-01-18 12:29] LABS: Basophils Percent Auto 1.5 % (0.0-3.0); Hematocrit* 36.8 % (33.0-51.0); Hemoglobin* 12.4 gm/dL (12.0-16.0); Immature Granulocytes Pct Auto 0.3 %; Lymphocytes Percent Auto 41.5 % (20-44); Mean Corpuscular HGB Conc 34 gm/dL (32-36); Mean Corpuscular Hemoglobin 30 pg (26-34); Mean Corpuscular Volume 90 fL (80-100); Monocytes Percent Auto 13.4 % (0.0-11.0); Neutrophils Percent Auto 40.3 % (42.0-72.0); Platelet Count* 186 K/uL (140-440); RDW Coefficient of Variation % 14.5 % (11.5-15.5); White Blood Count* 3.37 K/uL (4.50-11.00)
[2025-01-18 12:40] LABS: Slide Review Reflex No
[2025-01-18 12:52] LABS: Albumin* 4.2 g/dL (3.3-5.0); Chloride* 104 mmol/L (96-114)
[2025-01-18 12:53] LABS: Potassium* 3.7 mmol/L (3.6-5.1); Sodium* 137 mmol/L (135-149)
[2025-01-18 12:55] LABS: Anion Gap 9 mEq/L (7-15); Aspartate Amino Transferase* 21 U/L (12-35); Bilirubin Total* 1.9 mg/dL (0.1-1.5); Blood Urea Nitrogen* 13 mg/dL (7-30); Carbon Dioxide* 24 mmol/L (20-32); Creatinine* 0.7 mg/dL (0.5-1.5); Est. Creatinine Clearance* 43.92; Estimated Glomerular Filt Rate 94 ml/min
[2025-01-18 12:56] LABS: Alanine Aminotransferase* 16 U/L (4-35); Alkaline Phosphatase* 51 U/L (40-150); Calcium* 8.9 mg/dL (8.4-10.6); Glucose* 83 mg/dL (60-115); Lactate Dehydrogenase* 156 U/L (120-246); Total Protein* 6.9 g/dL (6.0-8.3)
[2025-02-16 10:23] LABS: Eosinophils Percent Auto 2.5 % (0.0-7.0); Hematocrit* 39.2 % (33.0-51.0); Hemoglobin* 13.3 gm/dL (12.0-16.0); Immature Granulocytes Pct Auto 0.3 %; Lymphocytes Percent Auto 36.1 % (20-44); Mean Corpuscular HGB Conc 34 gm/dL (32-36); Mean Corpuscular Hemoglobin 30 pg (26-34); Mean Corpuscular Volume 90 fL (80-100); Monocytes Percent Auto 12.6 % (0.0-11.0); Neutrophils Percent Auto 46.5 % (42.0-72.0); Platelet Count* 194 K/uL (140-440); RDW Coefficient of Variation % 14.6 % (11.5-15.5); Red Blood Count* 4.37 m/uL (4.00-5.20); White Blood Count* 3.96 K/uL (4.50-11.00)
[2025-02-16 10:27] LABS: Slide Review Reflex No
[2025-02-16 10:35] LABS: Albumin* 4.5 g/dL (3.3-5.0); Chloride* 106 mmol/L (96-114); Potassium* 3.9 mmol/L (3.6-5.1); Sodium* 137 mmol/L (135-149)
[2025-02-16 10:38] LABS: Alanine Aminotransferase* 19 U/L (4-35); Alkaline Phosphatase* 62 U/L (40-150); Anion Gap 9 mEq/L (7-15); Aspartate Amino Transferase* 24 U/L (12-35); Bilirubin Total* 2.4 mg/dL (0.1-1.5); Blood Urea Nitrogen* 14 mg/dL (7-30); Calcium* 9.3 mg/dL (8.4-10.6); Carbon Dioxide* 22 mmol/L (20-32); Creatinine* 0.8 mg/dL (0.5-1.5); Est. Creatinine Clearance* 43.92; Estimated Glomerular Filt Rate 80 ml/min; Glucose* 87 mg/dL (60-115); Total Protein* 7.3 g/dL (6.0-8.3)
== END 2025-02-28 23:59 | disposition home or self-care (01) ==
LOC: CCIC 10:00
PROVIDERS: PCP Internal Medicine; Referring Provider Family Medicine; Visit Provider Internal Medicine Hematology & Oncology
DX: C90.01 Multiple myeloma in remission (principal)
CPT/HCPCS: 36415; 80053; 80061; 80076; 82784; 83520; 83615; 84155; 84165; 85025; 86334; 99214; G0463

== ENCOUNTER 2025-08-23 08:33 | Outpatient (CLI) | payer MEDICARE, BC, SELFPAY | END 2025-08-23 08:34 | disposition home or self-care (01) | LOC: NFLDREF 08-25 14:45 | PROVIDERS: PCP Internal Medicine; Referring Provider Internal Medicine | DX: N30.01 Acute cystitis with hematuria (principal) | CPT/HCPCS: 87086 ==

== ENCOUNTER 2025-09-13 10:00 | Outpatient (RCR) | payer MEDICARE, BC, SELFPAY ==
--- NOTE | 2025-03-15 09:52 | ONC.NURNOTE ---
lab appt moved from 03/16 to 03/23, lenalidomide start to be delayed until symptoms resolve Vanessa reports fever 100.4 today with sinus pain she has had cold symptoms and low grade temp in the 's this past week, symptoms have escalated past 24 hours Vanessa has a VV with her PCP today
[2025-03-23 10:49] LABS: Albumin* 4.4 g/dL (3.3-5.0); Chloride* 108 mmol/L (96-114)
[2025-03-23 10:50] LABS: Potassium* 3.8 mmol/L (3.6-5.1); Sodium* 140 mmol/L (135-149)
[2025-03-23 10:52] LABS: Alanine Aminotransferase* 18 U/L (4-35); Alkaline Phosphatase* 59 U/L (40-150); Anion Gap 6 mEq/L (7-15); Aspartate Amino Transferase* 33 U/L (12-35); Bilirubin Total* 1.7 mg/dL (0.1-1.5); Blood Urea Nitrogen* 13 mg/dL (7-30); Carbon Dioxide* 26 mmol/L (20-32); Creatinine* 0.7 mg/dL (0.5-1.5); Estimated Glomerular Filt Rate 94 ml/min
[2025-03-23 10:53] LABS: Calcium* 9.5 mg/dL (8.4-10.6); Glucose* 88 mg/dL (60-115); Hematocrit* 37.9 % (33.0-51.0); Hemoglobin* 12.9 gm/dL (12.0-16.0); Immature Granulocytes Abs Auto 0.02 K/uL (0.00-0.30); Immature Granulocytes Pct Auto 0.4 %; Lymphocytes Absolute Auto 1.72 K/uL (0.90-2.90); Mean Corpuscular HGB Conc 34 gm/dL (32-36); Mean Corpuscular Hemoglobin 30 pg (26-34); Mean Corpuscular Volume 89 fL (80-100); RDW Coefficient of Variation % 14.8 % (11.5-15.5); Red Blood Count* 4.28 m/uL (4.00-5.20); Total Protein* 7.4 g/dL (6.0-8.3); White Blood Count* 4.96 K/uL (4.50-11.00)
[2025-03-23 11:10] LABS: Slide Review Reflex No
--- NOTE | 2025-03-23 14:19 | ONC.NURNOTE ---
lab results noted by Dr Dooley stable to restart lenalidomide Vanessa has 1-2 days of her antibiotic left- reports resolution of illness, continues with clear sinus drainage
[2025-03-26 02:31] LABS: Albumin 3.92 g/dL (3.75-5.01); Immunoglobulin A 190 mg/dL (68-408); Immunoglobulin G 1019 mg/dL (768-1632); Immunoglobulin M 47 mg/dL (35-263)
[2025-04-19 09:25] LABS: Hematocrit* 37.4 % (33.0-51.0); Hemoglobin* 12.4 gm/dL (12.0-16.0); Immature Granulocytes Pct Auto 0.3 %; Mean Corpuscular HGB Conc 33 gm/dL (32-36); Mean Corpuscular Hemoglobin 30 pg (26-34); Mean Corpuscular Volume 92 fL (80-100); RDW Coefficient of Variation % 15.5 % (11.5-15.5); Red Blood Count* 4.08 m/uL (4.00-5.20); White Blood Count* 3.76 K/uL (4.50-11.00)
[2025-04-19 09:31] LABS: Immature Granulocytes Abs Auto 0.00 K/uL (0.00-0.30); Lymphocytes Absolute Auto 1.50 K/uL (0.90-2.90); Slide Review Reflex No
[2025-04-19 09:42] LABS: Albumin* 4.1 g/dL (3.3-5.0); Chloride* 106 mmol/L (96-114); Potassium* 4.6 mmol/L (3.6-5.1); Sodium* 136 mmol/L (135-149)
[2025-04-19 09:44] LABS: Alanine Aminotransferase* 17 U/L (4-35); Alkaline Phosphatase* 55 U/L (40-150); Anion Gap 4 mEq/L (7-15); Aspartate Amino Transferase* 26 U/L (12-35); Bilirubin Total* 1.9 mg/dL (0.1-1.5); Blood Urea Nitrogen* 18 mg/dL (7-30); Carbon Dioxide* 26 mmol/L (20-32); Creatinine* 0.7 mg/dL (0.5-1.5); Estimated Glomerular Filt Rate 94 ml/min; Total Protein* 7.1 g/dL (6.0-8.3)
[2025-04-19 09:45] LABS: Calcium* 9.1 mg/dL (8.4-10.6); Glucose* 96 mg/dL (60-115)
[2025-05-18 09:47] LABS: Hematocrit* 37.7 % (33.0-51.0); Hemoglobin* 12.6 gm/dL (12.0-16.0); Immature Granulocytes Abs Auto 0.00 K/uL (0.00-0.30); Immature Granulocytes Pct Auto 0.0 %; Mean Corpuscular HGB Conc 33 gm/dL (32-36); Mean Corpuscular Hemoglobin 30 pg (26-34); Mean Corpuscular Volume 91 fL (80-100); RDW Coefficient of Variation % 14.4 % (11.5-15.5); Red Blood Count* 4.15 m/uL (4.00-5.20); White Blood Count* 3.99 K/uL (4.50-11.00)
[2025-05-18 09:50] LABS: Lymphocytes Absolute Auto 1.40 K/uL (0.90-2.90)
[2025-05-18 09:51] LABS: Slide Review Reflex No
[2025-05-18 10:00] LABS: Chloride* 108 mmol/L (96-114)
[2025-05-18 10:01] LABS: Albumin* 4.0 g/dL (3.3-5.0); Potassium* 4.4 mmol/L (3.6-5.1); Sodium* 137 mmol/L (135-149)
[2025-05-18 10:03] LABS: Alanine Aminotransferase* 18 U/L (4-35); Anion Gap 4 mEq/L (7-15); Aspartate Amino Transferase* 26 U/L (12-35); Blood Urea Nitrogen* 12 mg/dL (7-30); Carbon Dioxide* 25 mmol/L (20-32); Creatinine* 0.7 mg/dL (0.5-1.5); Est. Creatinine Clearance* 43.92; Estimated Glomerular Filt Rate 94 ml/min
[2025-05-18 10:04] LABS: Alkaline Phosphatase* 57 U/L (40-150); Bilirubin Total* 1.9 mg/dL (0.1-1.5); Calcium* 8.9 mg/dL (8.4-10.6); Glucose* 91 mg/dL (60-115); Total Protein* 6.9 g/dL (6.0-8.3)
--- NOTE | 2025-05-19 11:05 | ONC.NURNOTE ---
Coordination of care regarding lab and Roman appts Annual [facility] Hem appt 07/16/25 for 24hr urine and labs, Dr Trinidad 07/26/25 appts modified in [facility] canceled Myeloma labs, [address] Dooley follow up in June- since all is scheduled to be done at [facility] in Jul pt will come to [facility] in Jun for monthly lenalidomide labs Jul lenalidomide start date will be moved from 07/14/25 to 07/18/25 after labs done at [facility] Next appt with Dr Dooley will need to be scheduled for October with monthly labs resuming in [place] in August Vanessa agreeable with this plan
[2025-06-15 12:50] LABS: Hematocrit* 39.0 % (33.0-51.0); Hemoglobin* 12.9 gm/dL (12.0-16.0); Immature Granulocytes Abs Auto 0.00 K/uL (0.00-0.30); Immature Granulocytes Pct Auto 0.0 %; Lymphocytes Absolute Auto 1.20 K/uL (0.90-2.90); Mean Corpuscular HGB Conc 33 gm/dL (32-36); Mean Corpuscular Hemoglobin 30 pg (26-34); Mean Corpuscular Volume 91 fL (80-100); RDW Coefficient of Variation % 14.5 % (11.5-15.5); Red Blood Count* 4.30 m/uL (4.00-5.20); Slide Review Reflex No; White Blood Count* 3.68 K/uL (4.50-11.00)
[2025-06-15 13:03] LABS: Albumin* 4.2 g/dL (3.3-5.0); Chloride* 105 mmol/L (96-114)
[2025-06-15 13:04] LABS: Potassium* 4.5 mmol/L (3.6-5.1); Sodium* 135 mmol/L (135-149)
[2025-06-15 13:06] LABS: Alanine Aminotransferase* 15 U/L (4-35); Anion Gap 4 mEq/L (7-15); Aspartate Amino Transferase* 27 U/L (12-35); Blood Urea Nitrogen* 13 mg/dL (7-30); Carbon Dioxide* 26 mmol/L (20-32); Creatinine* 0.8 mg/dL (0.5-1.5); Est. Creatinine Clearance* 43.92; Estimated Glomerular Filt Rate 80 ml/min
[2025-06-15 13:07] LABS: Alkaline Phosphatase* 67 U/L (40-150); Bilirubin Total* 2.2 mg/dL (0.1-1.5); Calcium* 9.3 mg/dL (8.4-10.6); Glucose* 88 mg/dL (60-115); Total Protein* 7.4 g/dL (6.0-8.3)
--- NOTE | 2025-06-15 15:38 | ONC.NURNOTE ---
lab results reviewed and called to Vanessa to start lenalidomide tomorrow
--- NOTE | 2025-07-18 12:41 | ONC.NURNOTE ---
Pt had labs drawn in [place] at [facility] today. Reviewed labs and follow-up plan. Pt will see MD in [place] on 07/26/2025. Pt will return to [facility] on 08/16/2025 for labs. Pt does NOT have a Dr. Dooley follow-up scheduled at this time. Will have NAYLA Perez NN schedule pt's MD f/u when she is here in August for labs. Pt agrees with the plan.
[2025-08-16 11:11] LABS: Hematocrit* 37.9 % (33.0-51.0); Hemoglobin* 12.7 gm/dL (12.0-16.0); Immature Granulocytes Abs Auto 0.00 K/uL (0.00-0.30); Immature Granulocytes Pct Auto 0.0 %; Lymphocytes Absolute Auto 1.50 K/uL (0.90-2.90); Mean Corpuscular HGB Conc 34 gm/dL (32-36); Mean Corpuscular Hemoglobin 31 pg (26-34); Mean Corpuscular Volume 92 fL (80-100); RDW Coefficient of Variation % 15.3 % (11.5-15.5); Red Blood Count* 4.13 m/uL (4.00-5.20); White Blood Count* 4.10 K/uL (4.50-11.00)
--- NOTE | 2025-08-16 11:18 | ONC.NURNOTE ---
Reports challenges with managing ongoing diarrhea and imodium 1 imodium leads to constipation she has tried breaking the imodium in half discussed trying liquid imodium
[2025-08-16 11:22] LABS: Chloride* 103 mmol/L (96-114)
[2025-08-16 11:23] LABS: Albumin* 4.0 g/dL (3.3-5.0); Potassium* 4.2 mmol/L (3.6-5.1); Sodium* 135 mmol/L (135-149)
[2025-08-16 11:24] LABS: Slide Review Reflex No
[2025-08-16 11:25] LABS: Alanine Aminotransferase* 20 U/L (4-35); Anion Gap 4 mEq/L (7-15); Aspartate Amino Transferase* 29 U/L (12-35); Blood Urea Nitrogen* 14 mg/dL (7-30); Carbon Dioxide* 28 mmol/L (20-32); Creatinine* 0.8 mg/dL (0.5-1.5); Est. Creatinine Clearance* 43.92; Estimated Glomerular Filt Rate 80 ml/min
[2025-08-16 11:26] LABS: Alkaline Phosphatase* 58 U/L (40-150); Bilirubin Total* 2.1 mg/dL (0.1-1.5); Calcium* 9.2 mg/dL (8.4-10.6); Glucose* 97 mg/dL (60-115); Total Protein* 6.9 g/dL (6.0-8.3)
--- NOTE | 2025-08-16 12:28 | ONC.NURNOTE ---
Labs reviewed as stable- left message on VM Day 1 lenalidomide
[2025-09-13 10:45] LABS: Albumin* 4.0 g/dL (3.3-5.0); Chloride* 107 mmol/L (96-114)
[2025-09-13 10:46] LABS: Potassium* 4.5 mmol/L (3.6-5.1); Sodium* 137 mmol/L (135-149)
[2025-09-13 10:48] LABS: Alanine Aminotransferase* 19 U/L (4-35); Anion Gap 2 mEq/L (7-15); Aspartate Amino Transferase* 27 U/L (12-35); Blood Urea Nitrogen* 12 mg/dL (7-30); Carbon Dioxide* 28 mmol/L (20-32); Creatinine* 0.7 mg/dL (0.5-1.5); Est. Creatinine Clearance* 43.92; Estimated Glomerular Filt Rate 94 ml/min
[2025-09-13 10:49] LABS: Alkaline Phosphatase* 57 U/L (40-150); Bilirubin Total* 2.0 mg/dL (0.1-1.5); Calcium* 9.1 mg/dL (8.4-10.6); Glucose* 85 mg/dL (60-115); Total Protein* 7.1 g/dL (6.0-8.3)
[2025-09-13 10:50] LABS: Hematocrit* 37.6 % (33.0-51.0); Hemoglobin* 12.5 gm/dL (12.0-16.0); Immature Granulocytes Abs Auto 0.00 K/uL (0.00-0.30); Immature Granulocytes Pct Auto 0.0 %; Mean Corpuscular HGB Conc 33 gm/dL (32-36); Mean Corpuscular Hemoglobin 31 pg (26-34); Mean Corpuscular Volume 93 fL (80-100); RDW Coefficient of Variation % 14.7 % (11.5-15.5); Red Blood Count* 4.06 m/uL (4.00-5.20); White Blood Count* 3.23 K/uL (4.50-11.00)
[2025-09-13 10:57] LABS: Lymphocytes Absolute Auto 1.30 K/uL (0.90-2.90); Slide Review Reflex No
--- NOTE | 2025-09-14 09:42 | ONC.NURNOTE ---
Lab results reveiwed and discussed with Vanessa she will be receiving lenalidomide in the mail on 09/15 next appts reviewed
== END 2025-09-19 23:59 | disposition home or self-care (01) ==
LOC: CCIC 10:00
PROVIDERS: Internal Medicine Hematology & Oncology; PCP Internal Medicine; Referring Provider Internal Medicine; Visit Provider Clinical Nurse Specialist
DX: C90.01 Multiple myeloma in remission (principal)
CPT/HCPCS: 36415; 80053; 82784; 83520; 83615; 84155; 84165; 85025; 86334; 99214; G0463